=== PATIENT | female | born 1970 | race Caucasian/White ===

== ENCOUNTER 2022-08-26 08:23 | Outpatient (REF) | payer OTHER, SELFPAY ==
--- NOTE | ~2022-08-26 | CT_ITS ---
EXAMINATION: CT SOFT TISSUE NECK WITHOUT IV CONTRAST CLINICAL INFORMATION: Nontoxic multinodular goiter. COMPARISON: Thyroid ultrasound 10/30/2015. TECHNIQUE: Helical imaging was performed in the axial plane with generation of coronal and sagittal reformatted images. This CT examination was performed using dose optimization techniques as appropriate, variously including the following: *Automated exposure control. *Adjustment of mA and/or kV according to patient size (this includes techniques or standardized protocols for targeted exams where dose is matched to indication/reason for exam; i.e. extremities or head). *Use of iterative reconstruction technique. DLP: 370 mGy-cm FINDINGS: A dominant partially calcified nodule within the left thyroid lobe is difficult to measure on this noncontrast CT. Bilateral thyroid nodules are better appreciated on the most recent thyroid ultrasound dated 10/30/2015 and these nodules would be better followed with ultrasound. There is no mass effect on the trachea or esophagus. No substernal extension of the thyroid. The unenhanced submandibular glands, parotid glands, and orbital soft tissues are unremarkable. There is atherosclerotic calcification involving the carotid bifurcations bilaterally. The laryngeal structures are unremarkable. No definite superficial mucosal space lesions identified on this noncontrast CT though assessment is limited. Imaged upper lungs are clear. Imaged upper mediastinum is unremarkable. Mild cervical spondylosis. No acute or suspicious osseous findings. Occipital arachnoid granulations. CT/CT soft tissue neck wo IV con IMPRESSION: A dominant partially calcified nodule within the left thyroid lobe is difficult to measure on this noncontrast CT. Bilateral thyroid nodules are better appreciated on the most recent thyroid ultrasound dated 10/30/2015 and these nodules would be better followed with ultrasound. There is no mass effect on the trachea or esophagus. No substernal extension of the thyroid.
== END 2022-08-26 08:24 | disposition home or self-care (01) ==
LOC: HO.CT 08:23
PROVIDERS: PCP Pediatrics; Visit Provider Internal Medicine
DX: E04.2 Nontoxic multinodular goiter (principal)
CPT/HCPCS: 70490

== ENCOUNTER 2022-09-16 07:33 | Outpatient (REF) | payer OTHER, SELFPAY ==
--- NOTE | 2022-09-16 08:34 | PM.OP ---
Brief Operative Note Date of Service: 09/16/22 Pre-op diagnosis: Multinodular Thyroid Procedure: This is doctor Ruth Ramirez. This is an ultrasound-guided fine-needle aspiration report. Date of Examination: 09/16/2022 Indication: Multinodular Thyroid Porcedure: Procedure was explained to the patient. Alternatives, the risk and benefits were discussed. Written consent was obtained. A time-out was also obtained. After sterile preparation, fine-needle aspiration of a left mid pole 2.0 cm thyroid nodule was performed using direct ultrasound guidance to confirm accurate needle placement. Two aspirations were made using 27 gauge needles. An additional two aspirations were made using 25 guage needles. Samples were submitted for cytology. 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 The patient tolerated the procedure well. Aftercare instructions were provided. Impression: Uncomplicated fine needle aspiration biopsy of a left mid pole 2.0 cm thyroid nodule thyroid nodule under ultrasound guidance. Of note, her right mid pole lateral nodule was remeasured and found to be subcentimeter today. The medial RMP nodule was found to be a pseudonodule and not a true nodule. Surgeon: Ruth Ramirez, DO Was an Farmer Vegetable used for this Procedure?: No Estimated blood loss (mL): 0
[2022-09-16] MEDS: Lidocaine HCl 1 % 20 ML VIAL 5 ML SUBCUT (09:40)
== END 2022-09-16 07:34 | disposition home or self-care (01) ==
LOC: HO.US 07:33
PROVIDERS: PCP Pediatrics; Visit Provider Internal Medicine
DX: E04.2 Nontoxic multinodular goiter (principal)
CPT/HCPCS: 10005; 88172; 88173; 88177

== ENCOUNTER 2022-10-06 09:30 | Outpatient (REF) | payer OTHER, SELFPAY ==
[2022-10-06 11:33] LABS: Albumin Level 4.5 g/dL (3.5-5.0); Free T4 (Free Thyroxine) 1.02 ng/dL (0.71-1.85); Phosphorus 3.6 mg/dL (2.7-4.5); Thyroid Stimulating Hormone 1.32 uIU/mL (0.32-4.0); Vitamin D 25-OH Total 25.7 ng/mL (>30)
[2022-10-07 17:47] LABS: Calcium (PTHI) 9.5 mg/dL (8.6-10.4); PTHI 68 pg/mL (16-77)
== END 2022-10-06 09:31 | disposition home or self-care (01) ==
LOC: HO.LAB 09:30
PROVIDERS: PCP Pediatrics; Visit Provider Internal Medicine
DX: E04.2 Nontoxic multinodular goiter (principal); E55.9 Vitamin D deficiency, unspecified
CPT/HCPCS: 36415; 82040; 82306; 83970; 84100; 84439; 84443

== ENCOUNTER 2023-01-08 10:07 | Outpatient (REF) | payer OTHER, SELFPAY ==
[2023-01-08 11:39] LABS: Alanine Aminotransferase 42 U/L (0-31); Albumin Level 4.3 g/dL (3.5-5.0); Alkaline Phosphatase 62 U/L (39-117); Anion Gap 14 (12-20); Aspartate Amino Transferase 35 U/L (5-31); Bilirubin Total 0.8 mg/dL (0.0-1.0); Blood Urea Nitrogen 17 mg/dL (9-16); Calcium 9.4 mg/dL (8.4-10.2); Carbon Dioxide 26 mmol/L (22-29); Chloride 108 mmol/L (96-108); Estimated Glomerular Filt Rate > 60; Glucose Random 146 mg/dL (60-115); Phosphorus 3.4 mg/dL (2.7-4.5); Potassium 4.5 mmol/L (3.3-5.1); Sodium 143 mmol/L (135-145); Total Protein 7.3 g/dL (6.5-8.0)
[2023-01-08 11:56] LABS: Free T4 (Free Thyroxine) 1.39 ng/dL (0.71-1.85); Thyroid Stimulating Hormone 0.06 uIU/mL (0.32-4.0); Vitamin D 25-OH Total 34.2 ng/mL (>30)
[2023-01-11 01:03] LABS: Calcium (PTHI) 9.6 mg/dL (8.6-10.4); PTHI 27 pg/mL (16-77)
== END 2023-01-08 10:08 | disposition home or self-care (01) ==
LOC: HO.LAB 10:07
PROVIDERS: Visit Provider Internal Medicine
DX: E55.9 Vitamin D deficiency, unspecified (principal); E04.2 Nontoxic multinodular goiter
CPT/HCPCS: 36415; 80053; 82306; 83970; 84100; 84439; 84443

== ENCOUNTER → 2023-01-12 09:51 | Outpatient (BNVA) | payer OTHER, SELFPAY | PROVIDERS: PCP Pediatrics; Visit Provider Internal Medicine | DX: Z13.89 Encounter for screening for other disorder (principal) ==

== ENCOUNTER 2023-02-19 09:53 | Outpatient (REF) | payer OTHER, SELFPAY ==
[2023-02-19 11:31] LABS: Thyroid Stimulating Hormone 0.19 uIU/mL (0.32-4.0)
== END 2023-02-19 09:54 | disposition home or self-care (01) ==
LOC: HO.LAB 09:53
PROVIDERS: PCP Pediatrics; Visit Provider Internal Medicine
DX: E03.9 Hypothyroidism, unspecified (principal)
CPT/HCPCS: 36415; 84439; 84443

== ENCOUNTER 2023-03-17 07:12 | Outpatient (REF) | payer OTHER, SELFPAY ==
[2023-03-17 09:15] LABS: Free T4 (Free Thyroxine) 1.26 ng/dL (0.71-1.85); Thyroid Stimulating Hormone 1.03 uIU/mL (0.32-4.0)
== END 2023-03-17 07:13 | disposition home or self-care (01) ==
LOC: HO.LAB 07:12
PROVIDERS: Visit Provider Internal Medicine
DX: E03.9 Hypothyroidism, unspecified (principal)
CPT/HCPCS: 36415; 84439; 84443

== ENCOUNTER 2023-05-02 09:25 | Outpatient (AMB) | payer OTHER, SELFPAY ==
--- NOTE | 2023-05-02 09:27 | A.OFFVIS_ITS ---
Intake Intake Visit Reasons: Thyroid Cancer Allergies bee venom protein (honey bee) Allergy (Mild, Verified 05/02/23 09:56) Unknown cephalexin [From Keflex] Allergy (Mild, Verified 05/02/23 09:56) Rash clindamycin Allergy (Mild, Verified 05/02/23 09:56) Rash prochlorperazine [From Compazine] Adverse Reaction (Mild, Verified 05/02/23 09:56) Dystonia Medication List - Last Reconciled 05/02/23 by Ruth Ramirez DO cetirizine (Zyrtec) 10 mg PO DAILY PRN epinephrine IM hydrochlorothiazide 25 mg PO DAILY levothyroxine 88 mcg PO DAILY 30 days metoprolol succinate ER 50 mg PO DAILY omeprazole 20 mg PO DAILY risankizumab-rzaa (Skyrizi) mg subcut valacyclovir 500 mg PO DAILY PRN HPI HPI Comments History of Present Illness Details 53 YO F with PMHx NTMNG who is seen in F/U for postoperative hypothyroidism. Was initially diagnosed with multinodular thyroid many years ago and did undergo an FNA of 1 nodule in approximately 2015. She reports this was benign. She had a repeat thyroid US 07/01/2022 which revealed 3 nodules meeting indication for FNA biopsy. She underwent FNA biopsy 09/16/2022 of a LMP 2.0 cm thyroid nodule. 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 This gives a 75% of malignancy. Her other nodules were found to not meet indication for FNA biopsy at the time. She was referred to Dr. Dhaliwal and underwent a total thyroidectomy. 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 Postoperative she was started on levothyroxine 112 mcg PO daily. TSH was supressed on this dose, so her dose was decreased to 88 mcg PO daily. She reports feeling well today. Denies any history of head or neck irradiation. Denies any family history of thyroid cancer. Labs: Laboratory Tests 03/17/23 07:22 TSH 1.03 Free T4 1.26 [facility] Medical History Hypothyroidism Multinodular thyroid Psoriasis Vitamin D deficiency Surgical History History of endometrial ablation Hx of biopsy Hx of section Hx of lithotripsy Hx of total thyroidectomy Hx of unilateral salpingectomy Hx of wisdom tooth extraction Family History Father Diabetes HTN (hypertension) Mother Ovarian cancer Social History Alcohol intake: current Alcohol intake frequency: a few times a month Patient Tobacco Use Status: Never used Tobacco Assessment & Plan Assessment & Plan (1) Hypothyroidism: Code(s): E03.9 - Hypothyroidism, unspecified Plan: Patient with postoperative hypothyroidism. Surgical path was benign. TSH remains at goal on levothyroxine 88 mcg PO daily. She will continue on this dose. She will F/U with her PCP for further management. All of her questions were answered. She is in agreement with this plan of care. I spent 20 minutes in reviewing the record, seeing the patient and documenting in the medical record including 5 minutes on the phone with the Patient. Telehealth Telehealth Location of provider rendering services: practice address Location of patient: address on file Patient Identification confirmed using: Name, : Yes Telehealth method: voice only Patient verbally consented to treatment: Yes Patient verbally consented to billing insurance company: Yes Patient informed of any privacy concerns related to visit: Yes Coding Level of Care Code Tele Est Pt Level 3 (91566) Diagnoses Hypothyroidism E03.9
== END 2023-05-03 16:35 | disposition home or self-care (01) ==
LOC: HO.ENCR 09:25
PROVIDERS: PCP Pediatrics; Visit Provider Internal Medicine
DX: E03.9 Hypothyroidism, unspecified (principal)
CPT/HCPCS: 99213

== ENCOUNTER → 2023-05-02 09:25 | Outpatient (BNVA) | payer OTHER, SELFPAY | PROVIDERS: PCP Pediatrics; Visit Provider Internal Medicine ==

== ENCOUNTER 2024-07-04 16:35 | Outpatient (REF) | payer OTHER, SELFPAY ==
[2024-07-07 16:24] LABS: TS Negative Control Passed; TS Panel A 1; TS Panel B 1; TS Positive Control Passed; TSpotTB Negative (Negative)
== END 2024-07-04 16:36 | disposition home or self-care (01) ==
LOC: HO.LAB 16:35
PROVIDERS: PCP Pediatrics; Visit Provider Dermatology
DX: L40.0 Psoriasis vulgaris (principal); Z79.899 Other long term (current) drug therapy
CPT/HCPCS: 36415; 86481

== ENCOUNTER 2025-03-12 07:32 | Outpatient (REF) | payer OTHER, SELFPAY ==
--- OUTSIDE RECORDS SUMMARY | 2025-03-12 07:36 | XMS_ITS ---
Author Organization [facility] Address [address] [place] [address] Care Team Providers Care Coordinator Of Library Services Name Role Phone Cesar Garrett MD Primary Care Provider Unavail able Black, Omaira Unavailable [phone] Allergies Allergen (clinical drug ingredient) Drug/Non Drug Allergy documented on EMR Reaction Allergy Type Onset Date Status Ceftin rash Drug Allergy Active Keflex rash Drug Allergy Active Levaquin stomach upset Drug Allergy Act jocelyn Compazine Unknown Drug Allergy Active Bee Sting Unknown Allergy Active ciprofloxacin Ciprofloxacin stomach upset Drug Allergy Active REASON FOR VISIT Foot pain, Painful nail(s) aggrevated by shoes causing difficulty standing/walking Medications Medication SIG (Take, Route, Frequency, Duration) Notes Start Date End Date Status Cetirizine HCl 10 MG 1 tablet Orally Onc e a day Active Skyrizi 150 MG/ML as directed Subcutaneous as directed Active Levothyroxine Sodium 88 MCG 1 tablet in the morning on an empty stomach Orally Once a day Active Betamethasone Active Nabumetone 500 MG 1 tablet Orally as needed Active Physical Therapy . . . 2-3x/week for 3- 4 weeks 07/19/2023 Active Feldene 20 MG 1 capsule with food Orally Once a day for 30 day(s) 07/19/2023 Active Metoprolol Succinate ER 50 MG 1 tablet O rally Once a day Active hydroCHLOROthiazide 25 MG 1 tablet in th e morning Orally Once a day Active Clobetasol & Clobetasol Emul Active valACYclovir HCl Act jocelyn Omeprazole 20 MG 1 capsule 30 minutes before morning meal Orally Once a day Active Social History Tobacco Use: Social History Observation Description Date Details (start date - stop date) Never Smoker NA - NA Tobacco Use/Smoking Question Answer Notes Are you a: nonsmoker Additional Findings: Tobacco Non-User Aggressive non-smoker Alcohol Screen Question Answer Notes Did you have a drink contain ing alcohol in the past year? Yes How often did you have a dri nk containing alcohol in the past year? Monthly or less (1 point) How many drinks did you have on a typical day when you were drinking in the past year? 1 or 2 drinks (0 point) How often did you have 6 or more drinks on one occasion in the past year? Never (0 point) Points 1 Interpretation Negative Tobacco use other than smoking: Question Answer Notes Are you an other tobacco user? No Vital Signs Height 4 ft 10 in in 02/21/2024 Weight 148 lbs 02/21/2024 BMI 30.93 kg/m2 02/21/2024 Encounters Encounter Location Date Provider Diagnosis [facility] [address] [address] 02/21/2024 Omaira Black Posterior tibial tendinitis, right leg M76.821 ; Other nail disorders L60.8 ; Hypertrophy of bone, right ankle and foot M89.371 ; Flat foot [pes planus] (acquired), right foot M21.41 and Pain in right toe(s) M79.674 Assessments Encounter Date Diagnosis (ICD Code) Assessment Notes Treatment Notes Treatment Clinical Notes Section Notes 02/21/2024 Posterior tibial tendinitis, right leg (ICD-10 - M76.821) Resolved 02/21/2024 Other nail disorders (ICD-10 - L60.8) 02/21/2024 Hypertrophy of bone, right ankle and foot (ICD-10 - M89.371) 02/21/2024 Flat foot [pes planus] (acquired), right foot (ICD-10 - M21.41) 02/21/2024 Pain in right toe(s) (ICD-10 - M79.674) Plan Of Treatment Next Appt Details Follow Up: prn, Reason: Progress Notes * Renay BERGMAN LDOB:[birth year] (54 yo F)Acc No.[id number]:02/21/2024 Progress Note Patient:?Renay Bergman Provider:?Omaira Rosales DPM :1970???Age:54 Y???Sex:Female D ate:02/21/2024 Address:[address] [place], [place] [id number] Pcp:Cesar Garrett MD Subjective: * Chief Complaints: * ???Foot painPainful nail(s) aggrevated by shoes causing difficulty standing/walking * HPI: ???Foot Pain:?Nature:?aching, pulling, throbbing, weakness.?Location:?RIGHT.?Duration:?since DOI [ 09/2022 ].?Onset:?after a long walk.?Course:?improved , at 100%.?Aggrevated:?any pressure, standing, walking.?Treatments:?rest, ice , stretching , innersoles, innersoles, advil- pt did not fill feldene due to she decide she did not want to take it , physical therapy.?Painful Nails:?Pt States Last PCP Visit:?Date:?10/18/2023 * ROS:?General/Constitutional:?Nausea?denies.?Vomiting?denies.?Hunger Thirst?denies.?Loss appetite?denies.?Chills?denies.?Fatigue?admits.?Fever?denies.?Night Sweats?denies.?Unexplained weight loss?denies.?Unexplained weight gain?denies.?HEENTM:?Dentures?denies.?Dizziness?denies.?Glasses/contacts?admits.?Retinopathy?de nies.?Blurred/double vision?denies.?TMJ?admits.?Discharge/drainage?denies.?Implants?denies.?Sore throat?denies.?Dental implants?denies.?Hard of hearing ?denies.?Difficulty chewing/swallowing/speaking?denies.?Nose bleeds?denies.?Sore mouth?denies.?Respiratory:?On Oxygen?denies.?Pneumonia/pleurisy?denies.?Bronchitis?denies.?Emphysema?denies.?C oughing?admits.?Cough blood?denies.?Shortness of breath?denies.?Wheezing?denies.?Cardiovascular:?Pacemaker?denies.?MVP?denies.?WPW?denies.?CHF?denies.?Heart attack?denies.?Septal defect?denies.?Rapid beat?denies.?Chest pain ?denies.?Atrial Fib.?denies.?Murmur/Palpitations?denies.?Gastrointestinal:?Hemorrhoids?admits.?Stomach/Abdominal pain?denies.?Dark blood stool?denies.?Irritable bowel ?admits.?Constipation?denies.?Diarrhea?denies.?Hematology:?Swelling?denies.?Clots?denies.?Varicose Veins?denies.?Bruising?denies.?Bleeding problem?denies.?Genitourinary:?Blood urine?denies.?Frequent/Painfu/urination/bladder control?denies.?Kidney stones?denies.?Infection (UTI)?denies.?Nephropathy?denies.?sex trans dis (STD)?admits.?Prostate?denies.?Musculoskeletal:?Hammertoes?denies.?Bunions?admits.?Back Pain?denies.?Muscle Cramps/ Resting?denies.?Muscle cramps / walking?denies.?Generalized aches and pains?denies.?Weakness?denies.?Integ.:?Tovar?denies.?Scars?admits.?Corns/calluses?denies.?Ingrown nails?denies.?Painful nails?denies.?Open Sores?denies.?Rashes?denies.?Neurologic:?Difficulty sleeping?denies.?Brain disorder?denies.?Numbness?denies.?Balance trouble?denies.?Confusion?denies.?Fainting/blackouts?denies.?Tingling?denies.?Tr emors?denies.? * Medical History:? * Surgical History:?thyroidect kiya 10/2022lap salpingectomy 07/2011C-Section wisdom teeth extraction 1988ureteroscopy 06/2001 * Hospitalization/Major Diagno stic Procedure:?No Hospitalization History. * Family History:?Mother: dece ased.?Father: alive, arthritis, cancer, diagnosed with Diabetic - NIDDM.? * Social History:?Tobacco Use:?Tobacco Use/Smoking?Are you a:?nonsmoker ?Additional Findings: Tobacco Non-User?Aggressive non-smoker ?Tobacco use other than smoking?Are you an other tobacco user??No ???Drugs/Alcohol:?Drugs?Have you used drugs other than those for medical reasons in the past 12 months??No ?Alcohol Screen?Did you have a drink containing alcohol in the past year??Yes ?How often did you have a drink containing alcohol in the past year??Monthly or less (1 point) ?How many drinks did you have on a typical day when you were drinking in the past year??1 or 2 drinks (0 point) ?How often did you have 6 or more drinks on one occasion in the past year??Never (0 point) ?Points?1 ?Interpretation?Negative ???Miscellaneous:?Caffeine: yes, frequency:, 1-2 cups per day. ?Children: yes. ?no Exercise. ?Marital status: . ?Occupation: Sql Consultant medical radiation therapist. * Medications:?TakingClobetaso l & Clobetasol Emul Nabumetone 500 MG Tablet 1 tablet Orally as neededBetamethasone Levothyroxine Sodium 88 MCG Tablet 1 tablet in the morning on an empty stomach Orally Once a daySkyrizi 150 MG/ML Solution Prefilled Syringe as directed Subcutaneous as directedCetirizine HCl 10 MG Tablet 1 tablet Orally Once a dayOmeprazole 20 MG Tablet Delayed Release Disintegrating 1 capsule 30 minutes before morning meal Orally Once a dayvalACYclovir HCl hydroCHLOROthiazide 25 MG Tablet 1 tablet in the morning Orally Once a dayMetoprolol Succinate ER 50 MG Tablet Extended Release 24 Hour 1 tablet Orally Once a dayFeldene 20 MG Capsule 1 capsule with food Orally Once a dayPhysical Therapy . . . . 2-3x/weekMedication List reviewed and reconciled with the patientTaking Clobetasol & Clobetasol Emul Taking Nabumetone 500 MG Tablet 1 tablet Orally as neededTaking Betamethasone Taking Levothyroxine Sodium 88 MCG Tablet 1 tablet in the morning on an empty stomach Orally Once a dayTaking Skyrizi 150 MG/ML Solution Prefilled Syringe as directed Subcutaneous as directedTaking Cetirizine HCl 10 MG Tablet 1 tablet Orally Once a dayTaking Omeprazole 20 MG Tablet Delayed Release Disintegrating 1 capsule 30 minutes before morning meal Orally Once a dayTaking valACYclovir HCl Taking hydroCHLOROthiazide 25 MG Tablet 1 tablet in the morning Orally Once a dayTaking Metoprolol Succinate ER 50 MG Tablet Extended Release 24 Hour 1 tablet Orally Once a dayTaking Feldene 20 MG Capsule 1 capsule with food Orally Once a dayTaking Physical Therapy . . . . 2-3x/weekMedication List reviewed and reconciled with the patient * Allergies:?Keflex: rashCefti n: rashCiprofloxacin: stomach upsetLevaquin: stomach upsetCompazineBee Stingyes[Allergies Verified] Objective: * Vitals:?Ht: 4 ft 10 in, Wt: 148, BMI:30.93, Shoe size: 6.5. * Examination: ???Orthopedic: ?FOOT MORPHOLOGY:?Pes Planus structure , Semi-flexible , B/L POP navicular bone right foot.?TENDONITIS:?less @ 100% Pain on palpation, inflammation, and fusiform swelling to, Posterior Tibial Tendon, RIGHT, Pt is able to toe raise with heels inverted Pain on insertion of PPT tendon?.?Neurological: ?SENSORY:?Neurological exam reveals intact sensorium, pain sensation normal, vibration sensation intact, pinprick sensation is normal in the lower extremities, Pt denies, anesthesia, burning, paresthesia, tingling, B/L.?Nails: ?NAILS are:?Elongated, overgrown, dystrophic,brittle 1-5 right.? Assessment: * Assessment: 1.?Other nail disorders - L6 0.8 (Primary)?2.?Posterior tibial tendinitis, right leg - M76.821, Resolved?3.?Hypertrophy of bone, right ankle and foot - M89.371?4.?Flat foot [pes planus] (acquired), right foot - M21.41?5.?Pain in right toe(s) - M79.674? Plan: * Treatment: * Procedure Codes:? * Preventive Medicine:? ??Counseling:?Discussion:?-13: Office or other outpatient visit for the evaluation and management of an established patient, which required a medically appropriate history and/or examination and LOW level of DECISION MAKING for: 1 STABLE ACUTE UNCOMPLICATED PROBLEM, 2 OR MORE MINOR PROBLEMS, OR 1 STABLE CHRONIC PROBLEM, THAT POSE(S) A LOW RISK FOR MORBIDITY/MORTALITY. The visit on the day of the encounter encompassed interpreting the data and educating the patient as to the nature of their condition, treatment options available according to their individual PMH, meds, allergies, and overall health/living conditions, as well as any potential risks or complications that may occur from a failure to adhere to, and participate in, the recommended course of therapy. The discussion included a complete verbal, and/or written explanation of the examination results, any x-rays taken, the proposed diagnosis, and outline of the treatment plan. A schedule for future care needs was also explained. The patient verbalized an understanding of the instructions at this time and agreed to be an active participant in their treatment. If the patient should think of any questions or concerns after the visit, I have encouraged the patient to call the office,, Given recent successful results to treatment,, Patients podiatric issue has improved, they should call the office with any future issues or concerns.?Podiatric Counseling:?I explained the etiology of the patients podiatric pathology and the usual treatment plan. The patient was made aware of the adverse risks and sequelae associated with their medical condition(s) and the treatment necessary to avoid those complications. recomm biotin for dry brillte nails- discussed thyroid may be playing a role in the nails- no evidence of fungus.? * Follow Up:?prn * Images: * Sign off status: Completed true * Provider:?Omaira Rosales DPM Date:?2023 Generated for Printshauna nino/Fademariog/eTransmitting on:?03/12/2025 07:35 AM EDT History and Physical Notes * HPI (History of Present Illness) Category Sub-Category Detail Notes Category Not es Painful Nails Pt States Last PCP Visit: Date:: 10/18/2023 Foot Pain Nature: aching, pulling, throbbing, weakness Location: RIGHT Duration: since DOI [ 09/2022 ] Onset: after a long walk Course: improved , at 100% Aggravated: any pressure, standi ng, walking Treatments: rest, ice , stretchi ng , innersoles, innersoles, advil- pt did not fill feldene due to she decide she did not want to take it , physical therapy Examination Category Sub-Category Detail Notes Category Not es Neurological SENSORY: Neurological exa m reveals intact sensorium, pain sensation normal, vibration sensation intact, pinprick sensation is normal in the lower extremities, Pt denies, anesthesia, burning, paresthesia, tingling, B/L Orthopedic FOOT MORPHOLOGY: Pes Planus stru cture , Semi-flexible , B/L POP navicular bone right foot TENDONITIS: less @ 100% Pain on palpation, inflammation, and fusiform swelling to, Posterior Tibial Tendon, RIGHT, Pt is able to toe raise with heels inverted Pain on insertion of PPT tendon Nails NAILS are: Elongated, overgrown, dystro phic,brittle 1-5 right
[2025-03-12 08:07] LABS: MANUAL DIFF FLAG NO
[2025-03-12 09:11] LABS: Basophils Absolute Auto 0.1 X10*3/uL (0.0-0.2); Basophils Percent Auto 0.8 % (0-2); Eosinophils Absolute Auto 0.1 X10*3/uL (0.0-0.4); Eosinophils Percent Auto 1.9 % (0-4); Hematocrit 42.9 % (37.0-47.0); Imm Gran Abs Auto 0.02 X10*3/uL (0.00-0.03); Imm Gran Pct Auto 0.3 % (0.0-0.4); Lymphocytes Absolute Auto 1.4 X10*3/uL (1.2-4.9); Lymphocytes Percent Auto 18.3 % (20-40); Mean Corpuscular Hemoglobin 29.9 pg (27.0-33.0); Mean Corpuscular Volume 85.5 fL (80.0-98.0); Mean Platelet Volume 9.6 fL (9.4-12.3); Monocytes Absolute Auto 0.7 X10*3/uL (0.1-1.2); Monocytes Percent Auto 9.5 % (2-11); Neutrophils Absolute Auto 5.1 x10*3/uL (2.0-8.3); Neutrophils Percent Auto 69.2 % (45-73); Platelet Count 221 X10*3/uL (160-400); Red Blood Count 5.02 X10*6/uL (4.20-5.50); Red Cell Distribution Width 12.9 % (11.0-16.0); White Blood Count 7.4 X10*3/uL (4.8-10.8)
[2025-03-12 09:22] LABS: Appearance Urine Clear; Color Urine Yellow; Glucose Urine UA Negative (Negative); Leukocyte Esterase Urine Moderate (2+) (Negative); Nitrite Urine Negative (Negative); Specific Gravity - Urine 1.025 (1.005-1.025); UMIC TRIGGER UA YES; Urine Blood Negative (Negative); Urine Ketones Trace mg/dL (Negative); Urine Protein Negative (Neg-Trace)
[2025-03-12 09:23] LABS: Estimated Average Glucose 117 mg/dL; Hemoglobin A1c % 5.7 % (<6.0)
[2025-03-12 09:47] LABS: Alanine Aminotransferase 25 U/L (0-31); Albumin Level 4.5 g/dL (3.5-5.0); Alkaline Phosphatase 56 U/L (39-117); Anion Gap 13 (12-20); Aspartate Amino Transferase 28 U/L (5-31); Bilirubin Total 0.7 mg/dL (0.0-1.0); Blood Urea Nitrogen 13 mg/dL (9-16); Calcium 9.6 mg/dL (8.4-10.2); Carbon Dioxide 27 mmol/L (22-29); Chloride 105 mmol/L (96-108); Estimated Glomerular Filt Rate > 60; Glucose Random 102 mg/dL (60-115); Potassium 3.7 mmol/L (3.3-5.1); Sodium 141 mmol/L (135-145); Total Protein 7.6 g/dL (6.5-8.0)
[2025-03-12 09:59] LABS: Bacteria Urine 1+ (None Seen); Hyaline Casts Urine 0-2 /LPF (0-2); RBC Urine 0-2 /HPF (0-2); WBC Urine 0-5 /HPF (0-5)
[2025-03-12 10:09] LABS: TSH reflex Free T4 1.26 uIU/mL (0.32-4.0); Vitamin D 25-OH Total 27.1 ng/mL (>30)
== END 2025-03-12 07:33 | disposition home or self-care (01) ==
LOC: HO.LAB 07:32
PROVIDERS: PCP Pediatrics; Visit Provider Pediatrics
DX: E89.0 Postprocedural hypothyroidism (principal); Z13.1 Encounter for screening for diabetes mellitus
CPT/HCPCS: 36415; 80053; 81001; 82306; 83036; 84443; 85025

== ENCOUNTER 2025-08-26 16:37 | Outpatient (REF) | payer OTHER, SELFPAY ==
--- OUTSIDE RECORDS SUMMARY | 2025-08-26 18:04 | XMS_ITS | Clinical Summary ---
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 Name Role Phone Unavailable Primary Care Provider Unavailabl e Social History Tobacco Use Types Packs/Day Years Used Date Smoking Tobacco: Never Assessed Comments Unknown Sex and Gender Information Value Date Recorded Sex Assigned at Not on file Legal Sex Female 9:05 PM EST Gender Identity Not on file Sexual Orientation Not on file Plan of Treatment Health Maintenance Due Date Last Done Comments DTaP,Tdap,and Td Vaccines (1 - Tdap) 02/03/1988 Hepatitis B Vaccines (1 of 3 - 19+ 3-dose series) 02/03/1988 Cervical Cancer Screening: P ap Smear 1990 Pneumococcal Vaccine: 50+ Years (1 of 1 - PCV) 2019 Zoster Vaccines (1 of 2) 2019 Breast Cancer Screening 03/19/2021 03/19/20, 03/05/2018 Depression Screening 10/17/2024 COVID-19 Vaccine ( - 2023-2 5 season) 2025 Influenza Vaccine (#1) 2025 RSV Immunization Adult Patients (1 - 1-dose 75+ series) 02/03/2044 HIB Vaccines Aged Out No longer eligi ble based on patient's age to complete this topic HPV Vaccines Aged Out No longer eligi ble based on patient's age to complete this topic Hepatitis A Vaccines Aged Out No long er eligible based on patient's age to complete this topic IPV Vaccines Aged Out No longer eligi ble based on patient's age to complete this topic MMR Vaccines Aged Out No longer eligi ble based on patient's age to complete this topic Meningococcal ACWY Vaccine Aged Out N o longer eligible based on patient's age to complete this topic Meningococcal B Vaccine Aged Out No l onger eligible based on patient's age to complete this topic RSV Immunization Patients Under 20 months Aged Out No longer eligible b ased on patient's age to complete this topic Varicella Vaccines Aged Out No longer eligible based on patient's age to complete this topic Procedures Procedure Name Priority Date/Time Associated Diagnosis Comments [facility] SCREENING DIGITAL Routine 03/19/2019 8:10 AM EDT Encounter for screening mammogram for malignant neoplasm of breast from Last 3 Months or Most Recently Relevant to Health Maintenance Results * [facility] SCREENING DIGITAL (03/19/2019 8:10 AM EDT) Anatomical Region Laterality Modality Mammography 03/14/2019 1:26 PM EDT Narrative 03/19/2019 8:[address] [facility] Diagnostic Imaging Department [address] [place] [address] Patient: RENAY BERGMAN Filipe /Age/Sex: 1970 - 49 - F Unit#: [id number] Location/Status: [facility] Mnemonic/Ordering Site: [facility] Ordering Physician: CESAR KELLER MD [facility] Screening Digital - 03/17/19831 EXAM: [facility] Screening Digital EXAM DATE AND TIME: 03/17/2019 8:32 AM HISTORY: Screening. Paternal grandmother had breast carcinoma. COMPARISON: 03/04/18, 02/19/17, 01/31/16, 01/25/15 TECHNIQUE: CC and MLO views of both breasts were obtained using full field digital mammography. Bilateral digital breast tomosynthesis was performed in the MLO projection. Computer aided detection with the iCAD SecondLook 7.2-H was employed. TISSUE DENSITY: b. There are scattered areas of fibroglandular density. FINDINGS: No suspicious masses, grouped microcalcifications, or areas of architectural distortion are seen. A few smooth round benign microcalcifications are again seen bilaterally. The skin and vascularity are unremarkable. IMPRESSION: Stable mammographic appearance of the breasts. No evidence of malignancy is seen. A negative mammogram in the presence of a clinically suspicious palpable abnormality does not preclude the possibility of malignancy or alter the indications for biopsy. BI-RADS: Category 2: Benign RECOMMENDATION(S): 1: Routine screening mammogram BILATERAL in 1 year. 28294, 17128 3342F, 7025F Dictating Physician: NAA JOLLEY MD Electronically Signed by: NAA JOLLEY MD Dic Date/Time: 03/19/19809 Sign date/Time: 03/19/19809 Procedure Note Naa Jolley - 10/05/2022 [facility] Diagnostic Imaging Department [address] [place] [address] Patient: RENAY BERGMAN Filipe /Age/Sex: 1970 - 49 - F Unit#: [id number] Location/Status: [facility]/REG CLI Mnemonic/Ordering Site: [facility] Ordering Physician: CESAR KELLER MD [facility] Screening Digital - 03/17/19831 EXAM: [facility] Screening Digital EXAM DATE AND TIME: 03/17/2019 8:32 AM HISTORY: Screening. Paternal grandmother had breast carcinoma. COMPARISON: 03/04/18, 02/19/17, 01/31/16, 01/25/15 TECHNIQUE: CC and MLO views of both breasts were obtained using fullfield digital mammography. Bilateral digital breast tomosynthesis was performedin the MLO projection. Computer aided detection with the [email or web address]-GOODas employed. TISSUE DENSITY: b. There are scattered areas of fibroglandular density. FINDINGS: No suspicious masses, grouped microcalcifications, or areas ofarchitectural distortion are seen. A few smooth round benign microcalcifications areagain seen bilaterally. The skin and vascularity are unremarkable. IMPRESSION: Stable mammographic appearance of the breasts. No evidence of malignancyis seen. A negative mammogram in the presence of a clinically suspicious palpable abnormality does not preclude the possibility of malignancy or alter the indications for biopsy. BI-RADS: Category 2: Benign RECOMMENDATION(S): 1: Routine screening mammogram BILATERAL in 1 year. 52041, 21809 3342F, 7025F Dictating Physician: NAA JOLLEY MD Electronically Signed by: NAA JOLLEY MD Dic Date/Time: 03/19/19 0810 Sign date/Time: 03/19/19809 Cesar Keller MD IMG BI PROCEDURES Final Result from Last 3 Months or Most Recently Relevant to Health Maintenance
--- OUTSIDE RECORDS SUMMARY | 2025-08-26 18:04 | XMS_ITS | Data Portability ---
Author Organization [facility], Main Office Address [address] [facility] [address] [place] [address] Care Team Providers Care Footwear Sales Representative Name Role Phone CESAR KELLER Primary Care Provider [phone] NAOMIE GANDHI Landscape Foreman JERICA LOPEZ Fashion Merchandiser SISI TALAVERA Hotel Security Officer TRUE SONG Recharger GRISELDA ANG Survey Interviewer SHAHLA RODRIGEZ County Surveyor [phone] MAYKEL KESSLER General Surgeon Assessment Encounter Date Assessment Date Assessment LastModified by Organization Details LastModified Time 11/04/2023 11/04/2023 Discussed with patient the signs/symptom s warranted for a return to office visit and/or an ER visit. Patient understood and agreed with the plan. Not available 11/04/2023 13:19:55 Plan of Treatment Reminders Order Date Submit Date Provider Last Modified By Organization Details Last Modified Time Details Appointments PE EST 2024 10:15A M Cesar Keller MD Not available Not available Not available Lab HbA1c (hemoglo bin A1c), blood 2023 024 [facility], [address] [place] [address] [place], [id number], 03/13/2025 15:20:24 CMP, serum or plasma 2023 [facility], [address] [place] [address] [place], [address], 03/13/2025 15:20:24 TSH, serum, reflex free T4 2023 [facility], [address] [place] [address] [place], [address], 03/13/2025 15:20:24 urinalys is, complete 2023 [facility], [address] [place] [address] [place], [address], 03/13/2025 15:20:24 CBC w/ auto diff 2023 [facility], [address] [place] [address] [place], [address], 03/13/2025 15:20:24 vitamin D, 25-hydro xy, total, serum 2023 [facility], [address] [place] [address] [place], [address], 03/13/2025 15:20:24 Referral gynecolo gist referral - Patient to schedule 2023 merlene Not available 09/11/2024 11:56:06 nutritio nist/ titian referral 2023 merlene Not available 09/11/2024 11:56:18 Procedures None recorded . Surgeries None recorded . Imaging MAMMO, screenin g, bilatera l - Perform Diagnost ic Mammogra m and Breast Ultrasou nd if needed / Perform Ultrasou nd Guided Aspirati on and/or Breast Biopsy if warrante d 2023 [facility], [address], [place], [address], 09/11/2024 11:59:19 Medication Orders polymyxi n B sulfate 10,000 unit-tri methopri m 1 mg/mL eye drops 2024 [facility] #[id number], [address], [place], [id number], 08/07/2025 05:01:23 valacycl ovir 500 mg tablet 2024 025 [facility] #39522, [address], [place], [id number], 03/05/2025 15:54:46 levothyr oxine 88 mcg tablet 2024 025 [facility], [address], [place], [id number], 03/05/2025 15:54:42 metoprol ol succinat e ER 50 mg tablet,e xtended release 24 hr 2024 025 [facility] #40021, [address], [place], [id number], 03/05/2025 15:54:41 hydrochl orothiaz elaine 25 mg tablet 2024 025 [facility] #07767, [address], [place], [id number], 03/05/2025 15:54:43 epinephr ine 0.3 mg/0.3 mL injectio n, auto-inj eugenio 2023 024 DANA Not available 11/28/2023 09:36:31 sertrali ne 25 mg tablet 2023 024 awychowski Not available 12/22/2023 08:42:05 levothyr oxine 88 mcg tablet 2023 024 DANA Not available 11/28/2023 09:36:34 hydrochl orothiaz elaine 25 mg tablet 2023 024 DANA Not available 11/28/2023 09:36:30 metoprol ol succinat e ER 50 mg tablet,e xtended release 24 hr 2023 024 DANA Not available 11/28/2023 09:36:31 polymyxi n B sulfate 10,000 unit-tri methopri m 1 mg/mL eye drops 2023 024 DANA Not available 08/07/2025 05:01:23 Patient TargetsNo targets recorded. Patient Instructions Encounter Date Encounter Id Patient Instructions Last Modified By Organization Details Last Modified Time 11/04/2023 [id number] pinkeye: care instructions Not available 11/04/2023 14:59:51 11/28/2023 [id number] insomnia: care instructions awychowski Not available 11/28/2023 09:36:18 anxiety disorder : care instructions awychowski Not available 11/28/2023 09:36:18 learning about stress awychowski Not available 11/28/2023 09:38:58 Mental Health Information awychowski Not available 11/28/2023 09:38:58 snoring: care instructions awychowski Not available 11/28/2023 09:36:18 09/11/2024 [id number] Cervical Cancer Screening awychowski Not available 09/11/2024 10:26:52 high blood press ure: care instructions awychowski Not available 09/11/2024 10:26:52 learning about h igh blood pressure awychowski Not available 09/11/2024 10:26:51 gastroesophageal reflux disease (GERD): care instructions awychowski Not available 09/11/2024 10:26:51 Starting a Weight-Loss Plan: Care Instructions awychowski Not available 09/11/2024 10:26:52 03/05/2025 [id number] prediabetes: car e instructions awychowski Not available 03/05/2025 15:54:33 high blood press ure: care instructions awychowski Not available 03/05/2025 15:54:33 learning about h igh blood pressure awychowski Not available 03/05/2025 15:54:33 Reason for Referral Landscape Foreman Referral for Sc reening for malignant neoplasm of cervix Patient to schedule Referring Physician: Cesar Keller, Family Medicine, Encounter Date: 09/11/2024 Ticket Maker/dietitian Refer ral for Body mass index 30+ - obesity Referring Physician: Cesar Keller, Family Medicine, Encounter Date: 09/11/2024 Results Created Date Observation Date Name Description Value Unit Range Abnormal Flag Note LastModifiedBy Organization Detail LastModifiedTime 11/30/19 24 11/30/2023 LAB ONLY URINA LYSIS results Unabl e to oscar ct, normae nt to retur n. Not Available [facility] (Centralized Electronic Ordering - All Locations) Patient Can Go To The Location Of Their Choice, 11/30/2023 07:49:25 11/30/19 24 11/30/2023 COMPR EHENS LAURITA METAB OLIC PANL glucose 104 mg/dL (70-99 ) high Not Available [facility] (Centralized Electronic Ordering - All Locations) Patient Can Go To The Location Of Their Choice, 11/30/2023 10:53:43 11/30/1911/30/2023 COMPR EHENS LAURITA METAB OLIC PANL BUN 18 mg/dL (6-20) Not Available [facility] (Centralized Electronic Ordering - All Locations) Patient Can Go To The Location Of Their Choice, 11/30/2023 10:53:43 11/30/19 24 11/30/2023 COMPR EHENS LAURITA METAB OLIC PANL creatinine 0.8 mg/dL (0.5-1 .0) Not Available [facility] (Centralized Electronic Ordering - All Locations) Patient Can Go To The Location Of Their Choice, 11/30/2023 10:53:43 11/30/1911/30/2023 COMPR EHENS LAURITA METAB OLIC PANL sodium 142 mmol/ L (133-1 45) Not Available [facility] (Centralized Electronic Ordering - All Locations) Patient Can Go To The Location Of Their Choice, 11/30/2023 10:53:43 11/30/19 24 11/30/2023 COMPR EHENS LAURITA METAB OLIC PANL potassium 4.3 mmol/ L (3.6-5 .2) Not Available [facility] (Centralized Electronic Ordering - All Locations) Patient Can Go To The Location Of Their Choice, 11/30/2023 10:53:43 11/30/19 24 11/30/2023 COMPR EHENS LAURITA METAB OLIC PANL chloride 101 mmol/ L (98-10 7) Not Available [facility] (Centralized Electronic Ordering - All Locations) Patient Can Go To The Location Of Their Choice, 11/30/2023 10:53:43 11/30/1911/30/2023 COMPR EHENS LAURITA METAB OLIC PANL bicarbonate 27 mmol/ L (22-29 ) Not Available [facility] (Centralized Electronic Ordering - All Locations) Patient Can Go To The Location Of Their Choice, 11/30/2023 10:53:43 11/30/1911/30/2023 COMPR EHENS LAURITA METAB OLIC PANL anion gap 14 (4-17) Not Available [facility] (Centralized Electronic Ordering - All Locations) Patient Can Go To The Location Of Their Choice, 11/30/2023 10:53:43 11/30/1911/30/2023 COMPR EHENS LAURITA METAB OLIC PANL albumin 4.6 gm/dL (3.4-4 .8) Not Available [facility] (Centralized Electronic Ordering - All Locations) Patient Can Go To The Location Of Their Choice, 11/30/2023 10:53:43 11/30/1911/30/2023 COMPR EHENS LAURITA METAB OLIC PANL calcium 9.3 mg/dL (8.6-1 0.5) Not Available [facility] (Centralized Electronic Ordering - All Locations) Patient Can Go To The Location Of Their Choice, 11/30/2023 10:53:43 11/30/1911/30/2023 COMPR EHENS LAURITA METAB OLIC PANL bilirubin,to [place] 0.4 mg/dL (0-1.2 ) Not Available [facility] (Centralized Electronic Ordering - All Locations) Patient Can Go To The Location Of Their Choice, 11/30/2023 10:53:43 11/30/1911/30/2023 COMPR EHENS LAURITA METAB OLIC PANL total protein 7.4 gm/dL (6.2-8 .2) Not Available [facility] (Centralized Electronic Ordering - All Locations) Patient Can Go To The Location Of Their Choice, 11/30/2023 10:53:43 11/30/1910 1211/30/2023 COMPR EHENS LAURITA METAB OLIC PANL Ag ratio 1.6 Not Available [facility] (Centralized Electronic Ordering - All Locations) Patient Can Go To The Location Of Their Choice, 11/30/2023 10:53:43 11/30/19 24 11/30/2023 COMPR EHENS LAURITA METAB OLIC PANL AST 27 U/L (0-32) Not Available [facility] (Centralized Electronic Ordering - All Locations) Patient Can Go To The Location Of Their Choice, 11/30/2023 10:53:43 11/30/19 24 11/30/2023 COMPR EHENS LAURITA METAB OLIC PANL alk phos 70 U/L (35-10 4) Not Available [facility] (Centralized Electronic Ordering - All Locations) Patient Can Go To The Location Of Their Choice, 11/30/2023 10:53:43 11/30/19 24 11/30/2023 COMPR EHENS LAURITA METAB OLIC PANL ALT 25 U/L (0-33) Not Available [facility] (Centralized Electronic Ordering - All Locations) Patient Can Go To The Location Of Their Choice, 11/30/2023 10:53:43 11/30/1911/30/2023 COMPR EHENS LAURITA METAB OLIC PANL estimated GFR creatinine 86 mL/mi n/1.7 3_M2 Creat inine based estim ated glome rular filtr ation (eGFR ) in adult s is calcu lated using the Natio nal Kidne y Found ation recom femi d 2020 CKD-E PI equat ion. Estim ates GFR from serum creat inine , age and sex. Not Available [facility] (Centralized Electronic Ordering - All Locations) Patient Can Go To The Location Of Their Choice, 11/30/2023 10:53:43 11/30/1911/30/2023 LIPID PANEL cholesterol, total 195 mg/dL (<200) Not Available [facility] (Centralized Electronic Ordering - All Locations) Patient Can Go To The Location Of Their Choice, 11/30/2023 10:53:45 11/30/19 24 11/30/2023 LIPID PANEL triglyceride 223 mg/dL (<150) high Not Available [facility] (Central[facility] Ordering - All Locations) Patient Can Go To The Location Of Their Choice, 11/30/2023 10:53:45 11/30/1911/30/2023 LIPID PANEL HDL chol 30 mg/dL (>39) low Not Available [facility] (Centralized Electronic Ordering - All Locations) Patient Can Go To The Location Of Their Choice, 11/30/2023 10:53:45 11/30/1911/30/2023 LIPID PANEL LDL cholesterol, calculated 120 mg/dL (0-130 ) Not Available [facility] (Centralized Electronic Ordering - All Locations) Patient Can Go To The Location Of Their Choice, 11/30/2023 10:53:45 11/30/1911/30/2023 LIPID PANEL non HDL cholesterol (calc) 165 mg/dL (<160) high Not Available [facility] (Centralized Electronic Ordering - All Locations) Patient Can Go To The Location Of Their Choice, 11/30/2023 10:53:45 11/30/1911/30/2023 TSH WITH REFLE X TO FT4 TSH 1.08 uIU/m L (0.4-4 .2) Not Available [facility] (Centralized Electronic Ordering - All Locations) Patient Can Go To The Location Of Their Choice, 11/30/2023 11:07:46 11/30/1911/30/2023 25OH VITAM IN D 25OH vitamin D 23.0 NG/mL (20-50 ) Not Available [facility] (Centralized Electronic Ordering - All Locations) Patient Can Go To The Location Of Their Choice, 11/30/2023 11:07:47 11/30/1911/30/2023 HEMOG LOBIN A1C hemoglobin A1C 5.9 % (4.0-5 .6) high MONIT ORING : In known diabe tic patie nts, hemog lobin A1c targe ts sylvester d be discu ssed with healt h care provi gurdeep. DIAGN OSTIC USE: The Ameri can Diabe danika Assoc iatio n (ADA) and the World Healt h Organ izati on (WHO) recom mend the use of HbA1c to diagn ose diabe danika using a thres hold of 6.5%. Patie nts who have an HbA1c betwe en 5.7% and 6.4% are consi dered at incre ased risk for devel oping diabe danika in the darian [place] ON: False ly low HbA1c resul ts may be obser bean in patie nts with hemol ytic anemi a, homoz ygous forms of abnor mal hemog lobin (e.g. SS, CC, SC), pregn tashi, recen t blood loss or hemog lobin F great er than 7%. Fruct osami ne may be used as an alter jose test in these cases . REFER ENCE: ADA: Stand ards of Medic al Care in Diabe danika 2019, The Journ al of Clini josefa and Appli ed Resea [facility] and Educa tion Volum e 43, Suppl ement 1 Not Available [facility] (Centralized Electronic Ordering - All Locations) Patient Can Go To The Location Of Their Choice, 11/30/2023 20:51:25 11/30/1912/01/2023 LAB ONLY URINA LYSIS appear/color LIGHT YELLO W CLEAR Not Available [facility] (Centralized Electronic Ordering - All Locations) Patient Can Go To The Location Of Their Choice, 12/01/2023 02:30:40 11/30/1912/01/2023 LAB ONLY URINA LYSIS sp. gravity 1.028 (1.002 -1.030 ) Not Available [facility] (Centralized Electronic Ordering - All Locations) Patient Can Go To The Location Of Their Choice, 12/01/2023 02:30:40 11/30/1912/01/2023 LAB ONLY URINA LYSIS urine pH 6.0 (5.0-8 .0) Not Available [facility] (Centralized Electronic Ordering - All Locations) Patient Can Go To The Location Of Their Choice, 12/01/2023 02:30:40 11/30/1912/01/2023 LAB ONLY URINA LYSIS urine albumin TRACE (neg) abnormal Not Available [facility] (Centralized Electronic Ordering - All Locations) Patient Can Go To The Location Of Their Choice, 12/01/2023 02:30:40 11/30/1912/01/2023 LAB ONLY URINA LYSIS urine glucose NEGATI VE (neg) Not Available [facility] (Centralized Electronic Ordering - All Locations) Patient Can Go To The Location Of Their Choice, 12/01/2023 02:30:40 11/30/1912/01/2023 LAB ONLY URINA LYSIS urine ketones NEGATI VE (neg) Not Available [facility] (Centralized Electronic Ordering - All Locations) Patient Can Go To The Location Of Their Choice, 12/01/2023 02:30:40 11/30/1912/01/2023 LAB ONLY URINA LYSIS urine bilirubin NEGATI VE (neg) Not Available [facility] (Centralized Electronic Ordering - All Locations) Patient Can Go To The Location Of Their Choice, 12/01/2023 02:30:40 11/30/1912/01/2023 LAB ONLY URINA LYSIS urine hemoglobin NEGATI VE (neg) Not Available [facility] (Centralized Electronic Ordering - All Locations) Patient Can Go To The Location Of Their Choice, 12/01/2023 02:30:40 11/30/1912/01/2023 LAB ONLY URINA LYSIS urine nitrite NEGATI VE (neg) Not Available [facility] (Centralized Electronic Ordering - All Locations) Patient Can Go To The Location Of Their Choice, 12/01/2023 02:30:40 11/30/1912/01/2023 LAB ONLY URINA LYSIS urine leukocyte 1+ (neg) abnormal Not Available [facility] (Centralized Electronic Ordering - All Locations) Patient Can Go To The Location Of Their Choice, 12/01/2023 02:30:40 11/30/1912/01/2023 LAB ONLY URINA LYSIS urobilinogen NORMAL mg/dL (norm) Not Available [facility] ([facility] Ordering - All Locations) Patient Can Go To The Location Of Their Choice, 12/01/2023 02:30:40 11/30/1912/01/2023 LAB ONLY URINA LYSIS urine WBCs 8 /hpf (0-5) high Not Available [facility] (Centralized Electronic Ordering - All Locations) Patient Can Go To The Location Of Their Choice, 12/01/2023 02:30:40 11/30/1912/01/2023 LAB ONLY URINA LYSIS urine RBCs <1 /hpf (0-3) Not Available [facility] (Centralized Electronic Ordering - All Locations) Patient Can Go To The Location Of Their Choice, [id number] 12/01/2023 02:30:40 11/30/1912/01/2023 LAB ONLY URINA LYSIS bacteria SLIGHT hpf (neg) abnormal Not Available [facility] (Centralized Electronic Ordering - All Locations) Patient Can Go To The Location Of Their Choice, [id number] 12/01/2023 02:30:40 11/30/1912/01/2023 LAB ONLY URINA LYSIS squamous epith 5 /hpf (0-8) Not Available [facility] (Centralized Electronic Ordering - All Locations) Patient Can Go To The Location Of Their Choice, [id number] 12/01/2023 02:30:40 09/05/2009/05/2024 MAMMO konstantin, digit al, bilat eral No observ ation record ed. [facility] [place] [address] [facility] [place], [address], 09/05/2024 11:23:08 09/06/2009/05/2024 MAMMkonstantin Schumacher, digit al, bilat eral No observ ation record ed. [facility] [address] [place], [address], 09/09/2024 19:52:41 Result Notes None recorded. Problems Name Problem SNOMED Code Status Onset Date Resolution Date Notes Provider Name and Address Organization Details Recorded Time Body mass index 30+ - obesity 289957567 Completed 12/16/2017 Cesar Keller MD [address] [facility] [address], [place], [address] , [facility] 4 10:17:39 Recurren t anxiety 704947961 Active Not Available [facility] 0 01:45:14 Advance directiv douglas heath with patient 622551620 Completed 11/06/2016 [facility] 7 10:04:17 Hypertri glycerid emia 046531106 Active Not Available [facility] 0 01:45:14 Psoriasi s vulgaris 302382854 Active Not Available [facility] 0 01:45:14 Dry eyes 538087465 Completed 11/06/2016 Cathryn Coulter by CARLENE honeycutt, [facility] 7 10:04:12 Essentia l hyperten jazz 32570217 Active 2012 Not Available [facility] 0 01:45:14 Gastroes ophageal reflux disease 742142562 Active 2012 Not Available [facility] 0 01:45:15 Herpes simplex 38533693 Active 2012 Not Available [facility] 0 01:45:15 Psoriasi s 7927859 Active 2012 Not Available [facility] 0 01:45:14 Dysplasi a of cervix 56787457 Active 2012 Not Available [facility] 0 01:45:14 Family history of malignan t neoplasm of ovary 981587659 Active 2015 Not Available [facility] 0 01:45:15 Mammogra phy abnormal 556420737 Completed 201612/06/2016 Cesar Keller MD [address], [place], [address] , [facility] 7 22:31:46 Seborrhe ic dermatit is 76177590 Active 2016 Not Available [facility] 0 01:45:15 Eustachi an tube disorder 42749985 Active 2016 Not Available [facility] 0 01:45:15 Allergic rhinitis 15200204 Active 2016 Not Available [facility] 0 01:45:15 Candidal intertri go 053605200 Completed 201612/16/2017 Cesar Keller MD [address], [place], [address] , [facility] 8 08:54:24 Allergy to bee venom 896431734 Active 2016 Not Available [facility] 0 01:45:15 Multinod ular goiter 898590152 Completed 201605/03/2023 2cm left mid gland nodule Cesar Keller MD [address], [place], [address] , [facility] 3 21:48:03 Allergic conjunct ivitis 240717790 Completed 201606/15/2017 Aranza swain [place] null, 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 2017 Not Available [facility] 0 01:45:15 Undiffer entiated connecti ve tissue disease 340007615 Active 2017 Not Available [facility] 0 01:45:15 Vitamin D deficien cy 89518103 Active 2017 Not Available [facility] 0 01:45:14 Allergic angioede ma 672858580 Active 2018 Not Available [facility] 0 01:45:15 Idiopath ic osteoart hritis 991203188 Active 2018 Not Available [facility] 0 01:45:14 Hiatal hernia 79123738 Active 2018 Not Available [facility] 0 01:45:15 Hypergly cemia 00155292 Completed 201905/25/2022 Cesar Keller MD [address], [place], [address] , [facility] 2 08:59:15 Psoriati c arthriti s 370953939 Active 2021 Cesar Keller MD [address], [place], [address] , [facility] 2 16:57:44 Displace ment of lumbar interver tebral disc without myelopat hy 80991572 Active 2021 Cesar Keller MD [address], [place], [address] , [facility] 2 16:57:57 Impaired fasting glycemia 521909244 Completed 202103/13/2025 Cesar Keller MD [address], [place], [address] , [facility] 5 15:22:11 Pyuria 8128416 Completed 202105/24/2023 Cesar Keller MD [address], [place], [address] , [facility] 3 08:52:23 Liver enzymes level above referenc e range 785718859 Completed 202103/13/2025 Cesar Keller MD [address], [place], [address] , [facility] 5 15:22:08 Mammogra phic mass of right breast 32684154202 248553 Completed 202110/06/2022 Cesar Keller MD [address], [place], [address] , [facility] 2 15:07:24 Cyst of right breast 53674267065 230847 Active 2021 Cesar Keller MD [address] [address], [place], [address] , [facility] 2 15:07:18 Postoper ative hypothyr oidism 86568716 Active 2022 Cesar Keller MD [address] [address], [place], [address] , [facility] 3 23:10:07 Steatoti c liver disease 335436816 Active 2022 Cesar Keller MD [address] [address], [place], [address] , [facility] 3 09:05:36 Pain in right foot 91763215367 9107 Completed 202209/11/2024 Cesar Keller MD [address] [address], [place], [address] , [facility] 4 10:25:37 Prediabe danika 870383010 Active 2023 Cesar Keller MD [address] [address], [place], [address] , [facility] 4 06:25:21 Body mass index 30+ - obesity 856179872 Active 2023 Cesar Keller MD [address] [address], [place], [address] , [facility] 4 10:17:39 Acute conjunct ivitis 07686968 Active 2024 CHETNA BOB- [address] [address], [place], [address] , [facility] 5 11:00:05 Acute infectio us conjunct ivitis 288354845 Active 2024 DENISSE BOBP- [address] [facility], [place], [address] , [facility] 11:00:18 Problem Notes None recorded. Procedures Surgical History Date Name Laterality Status Provider Name and Address Organization Details Recorded Time 024 Most Recent Mammogram completed Mora Garcia [facility] [place] 09/11/2024 09:32:07 024 Mammogram both breasts completed Mora Garcia [facility] [place] 09/11/2024 09:53:33 023 total thyroidectomy completed Marysol Schumacher [facility] 11/19/2022 08:34:31 022 therapeutic aspiration of cyst of breast completed Cesar Keller MD [address] [facility] [address] [place] [address], [address], [facility] 10/13/2022 07:40:31 022 biopsy of thyroid completed Cesar Keller MD [address], [address], [facility] 10/05/2022 21:44:15 022 Biopsy of thyroid completed Cesar Keller MD [address] [facility] [address] [facility], [place], [address], [facility] 11/12/2022 09:33:45 022 Mammogram Screening completed Freda Bazan [facility] 07/27/2022 09:56:44 022 Egd diagnostic brush wash completed Cesar Keller MD [address], [address], [facility] 12/02/2021 19:36:20 022 Colonoscopy completed Cesar Keller MD [address], [address], [facility] 05/31/2022 20:22:21 02/04/2 022 Egd diagnostic brush wash completed Cesar Keller MD [address] [facility] [address] [facility], [place], [address], [facility] 05/31/2022 20:23:06 020 Cerumen Removal completed Cesar Keller MD [address] [facility] [address] [facility], [place], [address], [facility] 11/02/2019 13:04:34 019 iridotomy [address] Anastasia Luis [facility] 04/09/2020 16:04:51 016 Advanced Care Planning completed Cesar Keller MD [address] [facility] [address] [facility], [place], [address], [facility] 11/20/2015 08:22:57 015 Date of Last Pap Smear completed Smitha Pena [facility] 12/03/2016 10:15:20 011 Date of Last Colonoscopy completed Caro Borja [facility] 08/04/2017 15:50:04 011 Colonoscopy completed Cesar Keller MD [address] [facility], [place], [address], [facility] 06/22/2017 16:42:39 011 EGD completed Cesar Keller MD [address] [facility], [place], [address], [facility] 06/22/2017 16:41:37 Dxa bone density study completed [facility] 02/09/2021 15:37:49 Caesarean Section completed Evon leung MA [facility] 11/17/2015 13:02:57 Cystourethroscopy completed Mary Pac [facility] 02/09/2021 15:37:49 Endometrial Ablation completed Evon Bahena MA [facility] 11/17/2015 13:29:43 Removal of fallopian tube completed Cesar Keller MD [address], [place], [address], [facility] 12/01/2016 09:51:03 Imaging Results None recorded. Procedure Notes None recorded. Medical Equipment None Reported. Allergies Allergen ID Allergen Name Allergen Category Reaction Reaction Severity Criticality Documentation Date Start Date Code Code System Note Provider Name and Address Organization Details Recorded Time 36272 Compazine medicatio n Not available Not available [facility] 11/17/20152014 78194 6 RxNorm dysto anabel Cesar Keller MD [address], [place], [address], [facility] 3 08:53:26 95481 clindamyc in Not available hives moderate Not available 11/17/2015 2582 RxNorm Evon Bahena MA null, [facility] 2 08:25:04 95952 honey bee venom environme nt anaphylax is severe Not available 11/17/2015 47490 7 RxNorm Cesar Keller MD [address], [place], [address], [facility] 6 13:36:59 69274 cephalexi n medicatio n rash moderate Not available 04/24/2020 2231 RxNorm Ann Dumont MA null, [facility] 0 09:42:14 Medications Name Sig Start Date Stop Date Status Note LastModified by Organization Details LastModified Time fluzone quadrival ent 9015-6780 .5 ml shena 11/02 completed Not Available Not Available Not Available neomycin/ polymyxin /hc 1 % soln 04/09 completed Not Available Not Available Not Available baclofen 10 mg tabs active Not Available Not Available Not Available valacyclo vir hcl 500 mg tabs 1 tab twice a day 06/15 completed Not Available Not Available Not Available humira pen 40 mg/0.8ml pnkt active Not Available Not Available Not Available erythromy haroon 5 mg/gm oint 11/02 completed Not Available Not Available Not Available olopatadi ne hcl 0.1 % soln 11/02 completed Not Available Not Available Not Available cosentyx sensoread y pen 150 mg/ml soaj 11/02 completed Not Available Not Available Not Available amoxicill in 875 mg tabs 11/02 completed Not Available Not Available Not Available alprazola m 0.5 mg tabs 11/02 completed Not Available Not Available Not Available prednisol one acetate 1 % susp 11/02 completed Not Available Not Available Not Available epipen 2-lisa 0.3 mg/0.3ml soaj 06/15 completed Not Available Not Available Not Available lorazepam 0.5 mg tabs 06/07 completed Not Available Not Available Not Available hydrochlo rothiazid e 25 mg tabs 04/09 completed Not Available Not Available Not Available methotrex ate 2.5 mg tabs 11/02 completed Not Available Not Available Not Available fluocinol one acetonide 0.025 % oint active Not Available Not Available Not Available stelara 45 mg/0.5ml sosy active Not Available Not Available Not Available mometason e furoate 0.1 % oint 11/02 completed Not Available Not Available Not Available polymyxin b sulfate/t rimethopr im sulfate 06314-1.1 unit/ml-% soln 11/02 completed Not Available Not Available Not Available fluconazo le 150 mg tabs 11/02 completed Not Available Not Available Not Available valacyclo vir hydrochlo ride 500 mg tabs 11/02 completed Not Available Not Available Not Available azithromy haroon 250 mg tabs active Not Available Not Available Not Available otezla 30 mg tabs active Not Available Not Available Not Available metoprolo l succinate er 50 mg tb24 1 tab daily by mouth 11/02 completed Not Available Not Available Not Available chlorthal idone 25 mg tabs 06/07 completed Not Available Not Available Not Available folic acid 1 mg tabs 11/02 completed Not Available Not Available Not Available mupirocin 2 % oint active Not Available Not Available Not Available desonide 0.05 % topical cream APPLY AM AND PM RASH FOREHEAD FOR 7 DAYS WHEN NEEDED 02/09 completed Not Available Not Available Not Available neomycin- polymyxin -hydrocor t 3.5 mg/mL-10, 000 unit/mL-1 % ear solution INSTILL 5 DROPS IN THE AFFECTED EAR(S) 4 TIMES DAILY FOR 5 DAYS 05/25 completed Not Available Not Available Not Available azelastin e 0.05 % eye drops 08/31 completed Not Available Not Available Not Available acetamino phen 325 mg tablet TAKE 2 TABLETS BY MOUTH EVERY 4 HOURS FOR 5 DAYS 11/30 completed Not Available Not Available Not Available prednison e 10 mg tablet take 4 tablets by mouth daily for 3 days, then 3 tablets by mouth daily for 3 days, then 2 tablets by mouth daily for 3 days then 1 tablet by mouth daily for 3 days. 01/26 completed Not Available Not Available Not Available ketoconaz ole 2 % shampoo LATHER ON AFFECTED AREA WAIT 5 MIN & RINSE. USE DAILY FOR FLARES & 3 TIMES WEEKLY FOR MAINTENA NCE. active Not Available Not Available No t Available azithromy haroon 250 mg tablet 06/07 completed Not Available Not Available Not Available ofloxacin 0.3 % eye drops INSTILL ONE DROP TO THE RIGHT EYE FOUR TIMES DAILY 05/25 completed Not Available Not Available Not Available fluconazo le 150 mg tablet Take 1 tablet every day by oral route for 2 days. 11/02 completed Not Available Not Available Not Available metoprolo l succinate ER 50 mg tablet,ex tended release 24 hr TAKE 1 TABLET BY MOUTH DAILY active Not Available Not Available No t Available Prilosec 20 mg capsule,d elayed release Take 1 capsule every day by oral route. active Not Available Not Available No t Available Zyrtec 10 mg tablet Take 1 tablet every day by oral route. active Not Available Not Available No t Available chlorthal idone 25 mg tablet 02/15 completed Not Available Not Available Not Available valacyclo vir 500 mg tablet TAKE 1 TABLET BY MOUTH EVERY DAY active Not Available Not Available No t Available peg-elect rolyte solution 420 gram oral solution 05/25 completed Not Available Not Available Not Available levothyro xine 100 mcg tablet Take by oral route for 90 days. 05/24 completed Not Available Not Available Not Available levothyro xine 88 mcg tablet TAKE 1 TABLET BY MOUTH EVERY DAY active Not Available Not Available No t Available alprazola m 0.5 mg tablet Take 1-2 tabs 1 hour before flights MAX PER DAY :4 04/09 completed Not Available Not Available Not Available ofloxacin 0.3 % ear drops INSTILL 10 DROPS INTO AFFECTED EAR(S) BY OTIC ROUTE TWICE DAILY 02/09 completed Not Available Not Available Not Available amoxicill in 875 mg tablet 10/15 completed Not Available Not Available Not Available famotidin e 20 mg tablet 09/01 completed Not Available Not Available Not Available prednisol one acetate 1 % eye drops,tabatha pension 10/15 completed Not Available Not Available Not Available lorazepam 0.5 mg tablet 10/15 completed Not Available Not Available Not Available methotrex ate sodium 2.5 mg tablet TAKE TWO PILLS ONCE WEEKLY. 90 DAYS SUPPLY. 11/30 completed Not Available Not Available Not Available cephalexi n 500 mg capsule Take 1 capsule every 8 hours by oral route for 7 days. 04/24 completed Not Available Not Available Not Available erythromy haroon 5 mg/gram (0.5 %) eye ointment 10/15 completed Not Available Not Available Not Available tacrolimu s 0.1 % topical ointment APPLY 1/4 INCH TO BOTH EYELIDS TWICE DAILY 05/25 completed Not Available Not Available Not Available tobramyci n 0.3 % eye drops 08/31 completed Not Available Not Available Not Available nystatin 100,000 unit/gram topical cream APPLY TO THE AFFECTED AREA(S) BY TOPICAL ROUTE 2 TIMES PER DAY 02/09 completed Not Available Not Available Not Available clotrimaz ole-betam ethasone 1 %-0.05 % topical cream APPLYA SMALL AMOUNT TWICE A DAY APPLY WITH FINGERTI P TO EXTERNAL EAR 2X/DAY [id number] THEN NEEDED 05/25 completed Not Available Not Available Not Available olopatadi ne 0.1 % eye drops Instill 1 drop twice a day by ophthalm ic route as needed for 10 days. 11/04 completed Not Available Not Available Not Available polymyxin B sulfate 10,000 unit-trim ethoprim 1 mg/mL eye drops Instill 1 drop 6 times a day by ophthalm ic route for 7 days. 08/07 completed Not Available Not Available Not Available betametha sone dipropion ate 0.05 % topical cream APPLY TOPICALL Y TO THE AFFECTED AREAS OF PSORIASI S FOR 1-2 WEEKS AT A TIME. DO NOT USE ON THE FACE OR SKIN active Not Available Not Available No t Available sertralin e 25 mg tablet TAKE 1 TABLET BY MOUTH EVERY DAY 12/21 completed foggy/fa tigue Not Available Not Available Not Available diclofena c sodium 75 mg tablet,de layed release TAKE 1 TABLET BY MOUTH TWICE DAILY NEEDED FOR PAIN WITH FOOD 04/13 completed Not Available Not Available Not Available folic acid 1 mg tablet TAKE ONE TAB BY MOUTH DAILY EXCEPT FOR THE DAY THAT YOU TAKE YOUR METHOTRE XATE. 90 DAYS SUPPLY. 11/30 completed Not Available Not Available Not Available hydrocort isone 2.5 % topical cream APPLY A THIN LAYER TO THE AFFECTED AREA(S) BY TOPICAL ROUTE 2 TIMES PER DAY 10/14 completed Not Available Not Available Not Available monteluka st 10 mg tablet 09/01 completed Not Available Not Available Not Available hydrochlo rothiazid e 25 mg tablet TAKE 1 TABLET BY MOUTH EVERY DAY FOR HIGH BLOOD PRESSURE active Not Available Not Available No t Available mometason e 0.1 % topical ointment Apply 1 applicat ion every day by topical route for 14 days. 04/09 completed Not Available Not Available Not Available mupirocin 2 % topical ointment APPLY 1 TEASPOON TOPICALL Y 2 TIMES PER DAY FOR 7 DAYS APPLY TO FOREHEAD ON AFFECTED AREA 02/09 completed Not Available Not Available Not Available fluocinol one 0.025 % topical ointment 08/31 completed Not Available Not Available Not Available nystatin 100,000 unit/gram topical powder 04/09 completed Not Available Not Available Not Available epinephri ne 0.3 mg/0.3 mL injection , auto-inje ctor INJECT 0.3 MG INTO THE MUSCLE NEEDED .MAY REPEAT DOSE AGAIN active Not Available Not Available No t Available ketoconaz ole 2 % topical cream APPLY TO THE AFFECTED TOPICAL AREA OF THE EARS AND FACEBID NEEDED active Not Available Not Available No t Available betametha sone dipropion ate 0.05 % topical ointment Apply 2 applicat ions every day by topical route for 15 days. 11/30 completed Not Available Not Available Not Available clobetaso l 0.05 % scalp solution APPLY TO AFFECTED AREAS AROUND EARS 1-2 TIMES DAILY FOR ONE WEEK AT A TIME. active Not Available Not Available No t Available SF 5000 Plus 1.1 % dental cream 06/15 completed Not Available Not Available Not Available fluticaso ne propionat e 50 mcg/actua tion nasal spray,tabatha pension 09/01 completed Not Available Not Available Not Available doxycycli ne hyclate 100 mg tablet TAKE 1 TABLET BY MOUTH TWICE A DAY FOR 7 DAYS 02/09 completed Not Available Not Available Not Available levothyro xine 112 mcg tablet Take 1 tablet every day by oral route for 90 days. 01/12 completed Not Available Not Available Not Available amoxicill in 875 mg-potass ium clavulana te 125 mg tablet 08/31 completed Not Available Not Available Not Available nabumeton e 500 mg tablet Take 1 tablet twice a day by oral route as needed for 30 days. 09/11 completed Not Available Not Available Not Available tobramyci n 0.3 %-dexamet hasone 0.1 % eye drops,tabatha pension APPLY 1 DROP TO BOTH EYES THREE TIMES DAILY FOR ONE WEEK ONLY, THEN DISCONTI NUE. 02/09 completed Not Available Not Available Not Available neomycin 3.5 mg/g-poly myxin B 10,000 unit/g-de xameth 0.1 % eye oint APPLY TO BOTH EYELIDS 3 TIMES A DAY THEN NEEDED 05/25 completed Not Available Not Available Not Available neomycin- polymyxin -hydrocor t 3.5 mg-10,000 unit/mL-1 % ear drops,tabatha p INSTILL 4 DROPS INTO AFFECTED EARS 3-4 TIMES PER DAY active Not a medicati on that should be refilled with some sort of an evaluati on. Not Available Not Available Not Available ciclopiro x 0.77 % topical cream APPLY TOPICALL Y 2 TIMES A DAY TO AFFECTED AREAS IN GROIN. 02/09 completed Not Available Not Available Not Available ciproflox acin 0.3 %-dexamet hasone 0.1 % ear drops,tabatha pension APPLY 4 DROP INTO BOTH EARS TWICE A DAY X 14 DAYS 05/25 completed Not Available Not Available Not Available clobetaso l 0.05 % shampoo Apply 1 applicat ion twice a week by topical route as needed for 30 days. active PRN Not Available Not Available No t Available metronida zole 1 % topical gel APPLY TO THE AFFECTED AREA(S) BY TOPICAL ROUTE ONCE DAILY ; RUB IN GENTLY AND COMPLETE LY 10/14 completed Not Available Not Available Not Available Diflucan 1 TAB(S), 150 MG, ONCE, 1 DOSE(S) 04/09 completed Not Available Not Available Not Available biotin 1 daily 07/24 completed Not Available Not Available Not Available Prilosec 1 TAB(S), 20 MG, ONCE A DAY, 14 DAY(S) 04/09 completed Not Available Not Available Not Available Valtrex 1 TAB, 500 MG, BID, DAYS 04/09 completed Not Available Not Available Not Available fluocinol one acetonide oil 0.01 % ear drops APPLY 4 DROPS TO EACH EAR 2 TIMES A WEEK AND NEEDED 05/25 completed Not Available Not Available Not Available cholecalc iferol (vitamin D3) 1,250 mcg (50,000 unit) capsule TAKE 1 CAPSULE( S) BY MOUTH EVERY WEEK 06/16 completed Not Available Not Available Not Available Align (B.infant is) 2 gummies daily 03/05 completed Not Available Not Available Not Available Stelara 45 mg/0.5 mL subcutane ous syringe 01/25 completed Not Available Not Available Not Available Cosentyx 150 mg/mL subcutane ous syringe Inject 300 mg every 4 weeks by subcutan eous route. 02/09 completed Not Available Not Available Not Available Cosentyx Pen 300 mg/2 pens (150 mg/mL) subcutane ous pen injector Inject 300 mg every month by sub-q route for 28 days. 02/09 completed Not Available Not Available Not Available Taltz Autoinjec tor (3 Pack) 80 mg/mL subcutane ous 04/13 completed Not Available Not Available Not Available Xatmep 2 TAB, 10 MG, ONCE A WEEK, 30 DAY(S) 02/15 completed Not Available Not Available Not Available Skyrizi 150 mg/1.66 mL(75 mg/0.83 mL x 2) subcutane ous syringe kit 05/25 completed Not Available Not Available Not Available Fluzone Quad (PF) 60 mcg (15 mcg x 4)/0.5 mL IM syringe 04/09 completed Not Available Not Available Not Available Airborne (ascorbic acid) 3 gummies daily active Not Available Not Available No t Available Skyrizi 150 mg/mL subcutane ous syringe Inject 150 mL every 3 months by sub-q route for 84 days. 05/24 completed Not Available Not Available Not Available Skyrizi 150 mg/mL subcutane ous pen injector every 3 months active Not Available Not Available No t Available Vitals Date Recorded Body height Body mass index (BMI) Body weight Heart rate Body temperature Systolic And Diastolic Provider Name and Address Organization Details Last Updated DateTime 4 149.23 cm 30.7 kg/m2 09238.6 6 g 71 /min 98.5 [degF] 124/91 mm[Hg] Perla Lynch LPN [facility] 4 14:50:51 Date Recorded Body height Body mass index (BMI) Body weight Heart rate Oxygen saturation Oxygen saturation in Arterial blood by Pulse oximetry Body temperature Systolic And Diastolic Provider Name and Address Organization Details Last Updated DateTime 4 149.23 cm 30.3 kg/m2 60370.2 6 g 66 /min 98 % 98 % 98 [degF] 132/85 mm[Hg] [facility] 4 08:59:26 Date Recorded Body height Body mass index (BMI) Body weight Heart rate Oxygen saturation Oxygen saturation in Arterial blood by Pulse oximetry Body temperature Systolic And Diastolic Provider Name and Address Organization Details Last Updated DateTime 5 149.23 cm 31.2 kg/m2 12363.6 3 g 74 /min 98 % 98 % 97.7 [degF] 120/79 mm[Hg] [facility] 5 15:34:08 Date Recorded Body height Body mass index (BMI) Body weight Heart rate Oxygen saturation Oxygen saturation in Arterial blood by Pulse oximetry Body temperature Systolic And Diastolic Provider Name and Address Organization Details Last Updated DateTime 5 149.23 cm 31 kg/m2 21619.0 4 g 68 /min 98 % 98 % 98.5 [degF] 126/84 mm[Hg] Aranza palacios MA [facility] 5 10:36:10 Date Recorded Body height Body mass index (BMI) Body weight Heart rate Oxygen saturation Oxygen saturation in Arterial blood by Pulse oximetry Body temperature Systolic And Diastolic Provider Name and Address Organization Details Last Updated DateTime 4 149.23 cm 31.8 kg/m2 82898.4 1 g 77 /min 97 % 97 % 97.2 [degF] 134/86 mm[Hg] Mora Garcia MA [facility] 4 09:38:09 Social History Question Answer Notes LastModified by Organizat ion Details LastModified Time Tobacco Smoking Status Never Smoker CARLENE Mendiola, [facility] 11/17/2015 13:24:26 Do You Have An Advance Directive? Yes HCP/ -Alistair rodríguez, Sister Elías Information not available 02/09/2021 Is Blood Transfusion Acceptable In An Emergency? Yes Information not available 11/17/2015 What Is Your Level Of Caffeine Consumption? Moderate 1 Cup Of Coffee Daily Information not available 07/24/2025 How Much Tobacco Do You Chew? None Information not available 06/15/2017 What Type Of Diet Are You Following? REGULAR Tries To Limit Sugar Information not available 09/11/2024 Which Illicit Or Recreational Drugs Have You Used? None Information not available 11/17/2015 Live Alone Or With Others? With Others (Roman), 2 Cats Information not available 05/25/2022 Do You Take Precautions To Prevent Distracted Driving? Yes Information not available 11/17/2015 How Often Do You Need To Have Someone Help You When You Read Instructions, Pamphlets, Or Other Written Material From Your Doctor Or Pharmacy? Never Information not available 11/17/2015 Have You Served In The ? No Information not available 12/01/2016 Have You Or Anyone In Your Household Had Any Of The Following Symptoms In The Last 14 Days: Sore Throat, Cough, Chills, Body Aches For Unknown Reasons, Shortness Of Breath For Unknown Reasons, Loss Of Smell, Loss Of Taste, Fever At Or Greater Than 100 Degrees Fahrenheit? No [email or web address] Information not available 04/24/2020 Are You Or Anyone In Your Household A Health Care Provider Or Emergency Responder? No [email or web address] Information not available 04/24/2020 To The Best Of Your Knowledge Have You Been In Close Proximity To Any Individual Who Tested Positive For COVID-19? No [email or web address] Information not available 04/24/2020 *AWV ONLY* Are You Presently Prescribed Opioid Medication By PCP Or Specialist? If YES -Provider Assess The Benefit For Other, Non-opioid Pain Therapies Instead, Even If The Patient Does Not Have OUD But Is Possibly At Risk. No Information not available 05/25/2022 What Was The Date Of Your Most Recent Tobacco Screening? 07/24/2025 Information not available 07/24/2025 How Many Children Do You Have? 1 Mandi Burton And Roderick (Michele ) Information not available 07/24/2025 Do You Use Protection During Sex? No Information not available 06/15/2017 Seat Belts Used Routinely Yes Information not available 11/17/2015 Are You Sexually Active? Yes Information not available 12/01/2016 Smoke Alarm In Home Yes Information not available 11/17/2015 At What Age Did You Start Smoking Tobacco? 0 Information not available 06/15/2017 Are You Passively Exposed To Smoke? No Information not available 11/17/2015 How Much Tobacco Do You Smoke? No Information not available 12/01/2016 Do You Use Sunscreen Routinely? Yes Information not available 11/17/2015 How Many Years Have You Smoked Tobacco? 0 Information not available 06/15/2017 Sex: Unknown Functional Status Question Answer Note LastModified by Organizat ion Details LastModified Time Do you use any illicit or recreational drugs? No Information not available 05/25/2022 Do you or have you ever used any other forms of tobacco or nicotine? No Information not available 05/25/2022 What is your level of alcohol consumption? Occasional Information not available 11/17/2015 Do you or have you ever used smokeless tobacco? Never used smokeless tobacco [email or web address] Information not available 04/09/2020 Are you currently employed? Yes [place] program Information not available 05/25/2022 Are you able to walk independently without assistance or assistive devices? YESWOREST Information not available 05/25/2022 Are you able to care for yourself independently? 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 Never used electronic cigarettes Information not available 02/09/2021 What is your exercise level? Occasional walking Information not available 09/11/2024 Mental Status None recorded. Family History Relationship Description Onset Age of this Age Resolved Age Notes LastModified by Organization Details LastModified Time Maternal Grandfather Harmful pattern of use of alcohol abolcun Not available 2015 15:22:49 Mother Malignant neoplasm of ovary 70 [email or web address] Not available 12/16 08:49:12 Father Arthritis abolcun Not available 11/27/2015 15:22:49 Father Diabetes mellitus abolcun Not available 2015 15:22:49 Father Hypertensive disorder abolcun Not available 2015 15:22:49 Father Hypercholest erolemia abolcun Not available 2015 15:22:49 Father Malignant neoplastic disease 77 skin abolcun Not available 2021 08:48:59 Father Polyp of colon [email or web address] Not available 05/25 08:56:20 Father Congestive heart failure [email or web address] Not available 09/11 10:09:19 Father Vascular dementia [email or web address] Not available 15:37:48 Paternal Grandmother Arthritis abolcun Not available 11/17 15:22:49 Paternal Grandmother Malignant neoplasm of breast abolcun Not available 2015 15:22:49 Paternal Grandfather Malignant neoplasm of colon abolcun Not available 2015 15:22:49 Sister Diabetes mellitus abolcun Not available 2015 15:22:49 Maternal Grandmother Hypertensive disorder abolcun Not available 2015 15:22:49 Maternal Grandmother Heart disease abolcun Not available 2015 15:22:49 Maternal Grandmother Malignant neoplasm of lung abolcun Not available 2015 15:22:49 Daughter Post-traumat ic stress disorder [email or web address] Not available 2020 15:37:49 Medical History Condition Response Skin Problems Y Obesity Y Thyroid Problems Y Hypertension Y Gynecological History Statement/Question Response Abnormal Pap N Date of Last Pap Smear 01/10/2015 Date of Last Colonoscopy 03/05/2011 Most Recent Mammogram 09/05/2024 Most Recent Bone Density Obstetrics History GPAL:G 0 P 0 0 0 0 Immunizations Vaccine Type Date Status Note Provider Nam e and Address Organization Details Recorded Time Influenza, injectable,quadriva lent, preservative free, pediatric [address] [facility] 07/29/2020 11:54:31 Tdap [address] [facility] 07/29/2020 11:54:32 TST-PPD intradermal 6 completed Not Available [facility] 11/28/2023 08:50:38 Influenza, split virus, trivalent, preservative [address] [facility] 07/29/2020 11:54:32 Influenza, split virus, trivalent, preservative [address] [facility] 05/25/2022 08:24:55 Influenza, split virus, quadrivalent, preservative [address] [facility] 07/29/2020 11:54:31 Influenza, split virus, quadrivalent, preservative 9 completed Not Available [facility] 11/28/2023 08:50:37 Influenza, MDCK, quadrivalent, PF [address] [facility] 05/25/2022 08:24:55 COVID-19, mRNA, LNP-S, PF, 100 mcg/0.5mL dose or 50 mcg/0.25mL dose 1 completed Evon Bahena MA null, [facility] 05/25/2022 08:24:55 COVID-19, mRNA, LNP-S, PF, 100 mcg/0.5mL dose or 50 mcg/0.25mL dose 1 completed Evon Bahena MA null, [facility] 05/25/2022 08:24:55 Influenza, split virus, quadrivalent, PF 1 completed CARLENE Mendiola, [facility] 05/25/2022 08:24:55 Influenza, split virus, quadrivalent, PF 9 completed Evon Bahena MA null, [facility] 05/25/2022 08:24:55 Influenza, MDCK, quadrivalent, PF 2 completed Mora Garcia MA null, [facility] 05/24/2023 08:25:58 Influenza, MDCK, quadrivalent, PF 3 completed Perla Lynch LPN null, [facility] 11/04/2023 14:51:07 Influenza, split virus, trivalent, PF 4 completed Mora Garcia MA null, [facility] 09/11/2024 09:31:45 zoster recombinant 4 completed Caro Borja null, [facility] 09/12/2024 11:48:58 Pneumococcal conjugate PCV20, polysaccharide [id number] conjugate, adjuvant, PF 4 completed Caro Borja null, [facility] 09/12/2024 11:48:58 Tdap 4 completed Caro Borja null, [facility] 09/12/2024 11:48:58 zoster recombinant 5 completed Marysol Schumacher null, [facility] 11/12/2024 12:49:35 Pneumococcal conjugate PCV20, polysaccharide [id number] conjugate, adjuvant, PF 4 completed Not Available [facility] 07/24/2025 10:25:21 Tdap 4 completed Not Available [facility] 07/24/2025 10:25:21 zoster recombinant 4 completed Not Available [facility] 07/24/2025 10:25:21 Influenza, split virus, trivalent, PF [address] [facility] 07/24/2025 11:41:17 Past Encounters Encounter ID Performer Location Encounter Start Date Encounter Closed Date Diagnosis/Indication Diagnosis SNOMED-CT Code Diagnosis ICD10 Code Diagnosis IMO Codes Diagnosis Note [id number] Cesar Keller MD Main Office [address] [facility] [address] [place] [address] 11/17/2015 12:43:59 11/17/2015 14:06:53 Adult health examination 621638093 Z00.01 Immunizati on status and screening utd based on risk factors. Regular dental and ophtho care advised as well as seatbelt and sunscreen use. Cervical, and breast cancer screening utd per pt, will track down reports. Due for colonosoco py f/u secondary to family history. Advance directives discussed and in place. Body mass index 30+ - obesity 217981575 Z68.30 Multinodular goiter 2375 27368 E04.9 Followed by endo Screening for malignant neoplasm of colon 965637976 Z12.11 Essential hypertension 61017251 I10 Needs better control. Will try diuretic and reassess. Common/ser ious potential side effects discussed. Recurrent anxiety 854364 001 F41.9 Uses for flying. Short term rx provided. Advance di rective discussed with patient 324920046 Z71.89 [id number] Cesar Keller MD Main Office [address] [facility] [address] [place] [address] 11/27/2015 15:07:16 11/27/2015 16:16:55 Essential hypertension 99653807 I10 Excellent response to diuretic alone. Pt advised to call with any problems and to have fasting labs done daquan to verify electrolyt es and renal function are normal. Body mass index 30+ - obesity 222843428 Z68.30 Pt plans to pursue a nutrition consultati on. Hypertriglyceridemia 302 574424 E78.1 Noted on labs in the Fall. Will make sure that thiazide is not making it worse. Low fat/CHO and high fiber diet as well as regular exercise advised. [id number] Ceasr Keller MD Main Office [address] [place] [address] 06/07/2016 08:01:31 06/07/2016 09:02:07 Essential hypertension 44156950 I10 Well controlled , continue current regimen. Dry eyes 748450793 H04.1 29 Given reported xerostomia as well and other autoimmune disease will assess further by screening for Sjogrens. Pt will arrange ophtho eval daquan. Gastroesop hageal reflux disease 636795266 K21.9 Will try slow wean off of PPI and call if having problems. I would prefer to transition her to H2B in place of chronic PPI if symptoms allow. [id number] Michele thompson MD Main Office [address] [address] [place] [address] 11/06/2016 09:53:58 11/06/2016 10:57:38 Sinusitis 73830036 J32.9 Vaginitis 50409193 N76.0 [id number] Cesar Keller MD Main Office [address] [place] [address] 12/01/2016 09:01:14 12/01/2016 10:15:28 Adult health examination 971753322 Z00.01 Immunizati on status and screening utd based on risk factors. Regular dental and ophtho care advised as well as seat belt and sunscreen use. Cervical, and breast cancer screening utd per pt, will track down reports. Advance directives in place. Hypertriglyceridemia 302 053779 E78.1 Body mass index 25-29 - overweight 017483466 E66.3 Z68.25 Chronic sinusitis 632343 00 J32.9 Suspect incomplete tx with amox last month. Will broaden coverage. Acute otitis externa 302 20623 H60.512 Call inb/worse. Essential hypertension 19622030 I10 Gastroesop hageal reflux disease 023334681 K21.9 Did not tolerate PPI wean. Without warning signs will contiue current regimen. [id number] Madie Payton PA-C Main Office [address] [address] [place] [address] 01/10/2017 15:44:52 01/10/2017 16:43:16 Eustachian tube disorder 16539348 H69.93 Ongoing issues with sinuses. NO previous allergy evaluation . Will refer to ENT and allergy . Use Fluticason e and continue antihistam josé antonio. Sinus XRAys. Allergic rhinitis 480526 04 J30.1 start otc antihistam josé antonio as discussed as well as nasal saline solution. Candidal intertrigo 2661 33964 B37.2 Apply Lotrisone behind both ears BID. Infection of ear lobe 95 243107 H60.8X9 [id number] Cesar Keller MD Main Office [address] [address] [place] [address] 06/15/2017 13:17:49 06/15/2017 14:02:08 Essential hypertension 66715160 I10 Well controlled , continue current regimen. Gastroesop hageal reflux disease 368854347 K21.9 Did not tolerate PPI wean. Is currently without warning signs. Will continue current regimen. Cellulitis of nasal mucous membrane 2931347275 08057 J34.0 Responding well to cephalospo rin. Advised to call if recurrent/ persistent . [id number] Madie Payton PA-C Main Office [address] [address] [place] [address] 10/03/2017 14:58:59 10/03/2017 16:04:50 Dysuria 64379547 R30.0 Acute sinusitis 80582788 J01.90 [id number] Cesar Keller MD Main Office [address] [address] [place] [address] 12/16/2017 08:19:25 12/16/2017 09:13:55 Adult health examination 185634890 Z00.00 Immunizati on status and screening utd based on risk factors. Regular dental and ophtho care advised as well as seat belt and sunscreen use. Cervical, and breast cancer screening utd has insurance sales assistant appt in a couple months. Advance directives in place. Hypertriglyceridemia 302 303546 E78.1 Will monitor and discuss mgmt based on CVD risk score. Essential hypertension 78871296 I10 Well controlled , continue current regimen. Body mass index 25-29 - overweight 739635362 E66.3 Z68.29 Multinodular goiter 2375 97710 E04.9 Followed by endo, due for labs. Gastroesop hageal reflux disease 955296044 K21.9 Did not tolerate PPI wean. Is currently without warning signs. Will continue current regimen. Generalize d anxiety disorder 95106571 F41.1 Intermitte nt issue. Will provide rx for PRN anxiolytic and monitor use. Therapy discussed/ declined. [id number] Cesar Keller MD Main Office [address] [place] [address] 01/02/2018 14:41:54 01/02/2018 15:17:23 Cellulitis of face 233369957 L03.211 ? secondary to abrasion vs sinusitis. Either way Augmentin should afford adequate control. Pt advised of common/ser ious side effects and to call with any problems. Call if swelling worsens/fe kuldeep develops or symptoms fail to improve. Would need broader coverage and assessment for deeper infection. Acute sinusitis 30168284 J01.90 [id number] Madie Payton PA-C Main Office [address] [place] [address] 03/27/2018 15:00:34 03/27/2018 16:36:34 Facial swelling 942790284 R22.0 Swelling and rash ongoing in the face. ? weather related to autoimmune disease as JOHN is positive and pt. responded very well to Prednisone vs delayed reaction to psoriasis meds. Pt. is advised to see rheum. and derm. as soon as possible to be able to see rash at it's worse. Pt. has ja with Dr. Mayer's office this week. Pt. will call / Bernadette's office. Will try topical steroid Eruption 195233834 R21 Rosacea 008211083 L71.9 [id number] Cesar Keller MD Main Office [address] [place] [address] 09/01/2018 09:05:10 09/01/2018 09:54:37 Gastroesophageal reflux disease 039864609 K21.9 Did not tolerate PPI wean. Is currently without warning signs. Will continue current regimen. Essential hypertension 70403502 I10 Well controlled , continue current regimen. Seborrheic dermatitis 50 739540 L21.9 Vitamin D deficiency 347 32371 E55.9 Level was 12 in January. Not on supplement . Will start high dose and recheck in 3 months. Quantitati ve abnormality of granulocytes 655363879 D72.9 ? significan ce. Will see if persistent . Consider heme consult if so or if other marraow cell lines are abnormal. [id number] Cesar Keller MD Main Office [address] [facility] [address] [place] [address] 10/14/2018 09:51:36 10/14/2018 10:48:26 Facial swelling 500314087 R22.0 ? rosacea vs allergic process vs sjogrens vs medication side effects vs psoriasis related. Will see if another prednisone taper helps. Has not been seen by allergy for this, will ask them for input. [id number] Megan jay MD Main Office [address] [facility] [address] [place] [address] 01/26/2019 09:20:18 01/26/2019 10:38:09 Adult health examination 244053348 Z00.00 Pt in good general health. He sees the dentist and eye providers. HCM screenings up to date, due for colon this year Tdap up to date, Pt needs to gets 20+ minutes exercise at least 5 days a week. Diet is balanced, see history for lifestyle choices Fear of flying 872948658 F40.243 small rx to use for upcoming trip. Side effects discussed Psoriasis vulgaris 5007 L40.0 followed by dermatolog y, on cosentyx and methotrexa te Hypertriglyceridemia 302 265908 E78.2 Discussed lowering fat and sweets/car bsin diet, recheck BS and lipids in 3 months [id number] Megan jay MD Main Office [address] [facility] [address] [place] [address] 06/16/2019 09:58:16 06/16/2019 10:45:03 Bacterial conjunctivitis 083399071 H10.9 pt with return of bacterial conjunctiv its with some skin irritation , I recc pt use erythromyc in eye ointment and place some on surroundin g tissue, after tx with this for 10 days she will start patanol since some of the problem is allergic rhinitisl Allergic conjunctivitis 979281001 H10.13 use after tx with abx Otitis media 25118022 H6 6.91 tx for OM, has discomfort , hum can hear there is a moderate interactio n with amox and mtx, pharmacy called, I told pharmacy to fill med and left message on pts cell to hold one dose of the MTX while on amox, amox can increase serum levels Vulvovaginitis 92316521 N76.0 [id number] Cesar Keller MD Main Office [address] [place] [address] 08/17/2019 13:20:45 08/17/2019 14:12:21 Essential hypertension 64040809 I10 Well controlled , continue current regimen. Gastroesop hageal reflux disease 143139225 K21.9 Did not tolerate PPI wean. Is currently without warning signs. Will continue current regimen, and ask GI to consider EGD. Screening for malignant neoplasm of colon 131421039 Z12.11 Excessive sweating 19734 005 R61 needs note for work. [id number] Cesar Keller MD Main Office [address] [place] [address] [place] [address] 11/02/2019 10:40:05 11/02/2019 11:29:27 Impacted cerumen in right ear 9190730484 888738 H61.21 Irrigated in the office with success. Cover for OE. Call if recurrent or if other issues develop. Preventiti ve measured disucssed/ advised. Otitis externa 9548111 H 60.91 [id number] Megan jay MD Main Office [address] [place] [address] [place] [address] 04/09/2020 14:51:54 04/09/2020 16:29:00 Adult health examination 612708644 Z00.00 Pt in good general health. She sees the dentist and eye providers. HCM screenings up to date, due for colon this year Tdap up to date, Pt needs to gets 20+ minutes exercise at least 5 days a week. Diet is balanced, see history for lifestyle choices Essential hypertension 06158705 I10 BP controlled , continue present meds, due for EKG , will do next ov Herpes simplex 84311154 B00.9 controlled on daily supression Screening for malignant neoplasm of colon 296486074 Z12.11 due tor colon, pt will make appt, has seen Dr Talavera Cellulitis 801288527 L03 .90 RIght ear and canal red and swollen, take meds and recheck in a week. Easy bruising 734834733 R58 noted on hands check labs Psoriasis 1670931 L40.9 followed by rosie, stable on cosentyx [id number] Megan jay MD Main Office [address] [facility] [address] [place] [address] 04/24/2020 09:20:32 04/24/2020 11:13:33 Otitis externa 1011286 H60.11 offered drops if ENT cannot see her soon. ENT states pt had appt this week and did not want to come in. She can reschedule for close evaluation Hyperglycemia 13976874 R 73.9 hgba1c 5.8, pre diabetes, will work on decreasing carbs, more exercise, declines oracle software engineer Psoriasis 9070137 L40.9 followed by rosie, stable on cosentyx Seborrheic dermatitis 50 936564 L21.9 call derm about eye and what cream best to use, has allergy eye drops to use [id number] Megan jay MD Main Office [address] [facility] [address] [place] [address] 02/09/2021 15:36:27 02/09/2021 16:55:18 Essential hypertension 06428398 I10 BP controlled , continue present meds and see if BP normalizes with less stress at home. Will get a cuff to check at home. Discussed good diet and adding back exercise at least every other day. She is due for EKG , will do next ov Generalize d anxiety disorder 16350142 F41.1 Discussed counseling Psoriasis 4696108 L40.9 followed by rosie, started new med [id number] Megan jay MD Main Office [address] [facility] [address] [place] [address] 04/13/2021 08:46:58 04/13/2021 10:00:19 Adult health examination 245494157 Z00.00 Pt in good general health. She sees the dentist and eye providers. She is due for colon this year, will see insurance sales assistant, mammogram due in May and would like to have a bone density. Tdap up to date, had covid vaccine. Pt needs to gets 20+ minutes exercise at least 5 days a week. Diet is balanced, see history for lifestyle choices Essential hypertension 08387917 I10 BP controlled , continue present meds, due for EKG Herpes simplex 22451442 B00.9 controlled on daily supression Screening for malignant neoplasm of colon 854640415 Z12.11 due for colon, pt will make appt, has seen Dr Talavera, would like to go to [facility] Psoriasis 8126473 L40.9 followed by satya johnson on Skyrizi and will be using relafen Postmenopa usal osteopenia 117272677 M85.80 will check bone density Screening for malignant neoplasm of breast 280207960 Z12.39 Osteopenia 012166217 M85 .80 [id number] Cesar Keller MD Main Office [address] [facility] [address] [place] [address] 05/25/2022 08:16:00 05/25/2022 09:15:55 Adult health examination 493123712 Z00.00 Immunizati on status and screening utd based on risk factors. COVID 19 boosters and Flu shot in the Fall advised. Regular dental and ophtho care advised as well as seat belt and sunscreen use. Cervical, and breast cancer screening utd has insurance sales assistant appt in a couple months. Advance directives in place. Varicella vaccination 68 485560 Z23 Essential hypertension 42410885 I10 Well controlled , continue current regimen. Screening for malignant neoplasm of breast 983210020 Z12.39 Screening for malignant neoplasm of cervix 265083315 Z12.4 Screening for malignant neoplasm of colon 585813858 Z12.11 Hepatitis C screening 41 3660862 Z11.59 Generalize d anxiety disorder 17375116 F41.1 Intermitte nt issue. Will provide rx for PRN anxiolytic and monitor use. Therapy discussed/ declined. Gastroesop hageal reflux disease 369040336 K21.9 Did not tolerate PPI wean. Is currently without warning signs. Will continue current regimen, and ask GI to consider EGD. Hypertriglyceridemia 302 681412 E78.2 Will monitor and discuss mgmt based on CVD risk score. Vitamin D deficiency 347 12588 E55.9 Hiatal hernia 26751640 K 44.9 On PPI Menopause present 505602 006 Z78.0 Multinodular goiter 2375 14944 E04.9 Followed by endo, due for labs. Sj gren's syndrome 87364915 M35.[address] Song. [id number] Cesar Keller MD Main Office [address] [place] [address] 11/30/2022 09:52:01 11/30/2022 10:44:00 Essential hypertension 53655735 I10 Well controlled , continue current regimen. Hypertriglyceridemia 302 967083 E78.2 Will monitor and discuss mgmt based on CVD risk score. Postoperat laurita hypothyroidism 83317225 E89.0 Early to recheck labs but needs f/u liver testing so I will check. Liver enzy mes level above reference range 814581779 R74.01 Possibly related to risankizum ab, but will refer for imaging if persistent . [id number] Cesar Keller MD Main Office [address] [facility] [address] [place] [address] 05/24/2023 08:16:52 05/24/2023 09:18:50 Adult health examination 740214786 Z00.00 Immunizati on status and screening utd based on risk factors. COVID 19 boosters and Flu shot in the Fall advised. Regular dental and ophtho care advised as well as seat belt and sunscreen use. Cervical, and breast cancer screening utd has insurance sales assistant appt in a couple months. Advance directives in place. Steatotic liver disease 889784055 K76.0 Making dietary changes, will monitor. Body mass index 30+ - obesity 545899568 Z68.30 E66.9 Pt plans to pursue a nutrition consultati on. Psoriasis 8776677 L40.9 Well controlled , following with derm. Postoperat laurita hypothyroidism 82701201 E89.0 [place]. TSH in March was normal. Will monitor. Adjustment disorder with mixed emotional features 79857006 F43.23 Still rattled by recent home break in. Will monitor. Pain in right foot 70915 50177 26595 M79.671 Essential hypertension 16790923 I10 Well controlled , continue current regimen. Impaired f asting glycemia 013920189 R73.01 Vitamin D deficiency 347 52482 E55.9 Varicella vaccination 68 381125 Z23 [id number] CELIA BRAVO Main Office [address] [address] [address] [place] [address] 11/04/2023 14:37:37 11/04/2023 15:04:20 Acute conjunctivitis 69590324 H10.32 x2 days of left eye erythema and pruritis. Woke up with eye crusting.- Denies of any changes in vision, trauma, or recent URI-will provide polymyxin eye drops-disc ussed conservati ve measuremen ts such as warm compress [id number] Cesar Keller MD Main Office [address] [address] [place] [address] 11/28/2023 08:48:05 11/28/2023 09:44:26 Allergy to bee venom 230199604 Z91.030 Essential hypertension 73888988 I10 Well controlled , continue current regimen. Postoperat laurita hypothyroidism 60718196 E89.0 Management transferre [place] [facility]. Generalize d anxiety disorder 59546268 F41.1 Will try low dose SSRI and titrate dose as tolerated. Pt will investigat e options via insurance. Vitamin D deficiency 347 69244 E55.9 Overdue for labs, pending from the Fall. Snoring 00714087 R06.83 Consider Insomnia 466968184 G47.0 0 Try melatonin otc [id number] Cesar Keller MD Main Office [address] [address] [place] [address] 09/11/2024 09:22:20 09/11/2024 10:34:03 Adult health examination 822138983 Z00.00 Due for tetanus, PCV, Shingrix and COVID 19 boosters. Regular dental and ophtho care advised as well as seat belt and sunscreen use. Cervical, and breast cancer screening utd has insurance sales assistant appt in a couple months. Advance directives in place. Screening for malignant neoplasm of breast 364107284 Z12.39 Screening for malignant neoplasm of cervix 337528156 Z12.4 Screening utd, followed by insurance sales assistant. Varicella vaccination 68 467296 Z23 Requires a tetanus booster 471471370 Z28.39 Tdap advised with new grandchild . Administra tion of pneumococcal vaccine 14117144 Z23 Body mass index 30+ - obesity 512647256 E66.9 Z68.31 Pt plans to pursue a nutrition consultati on. Essential hypertension 42933463 I10 Well controlled , continue current regimen. Gastroesop hageal reflux disease 545256242 K21.9 Did not tolerate PPI wean. Is currently without warning signs. Will continue current regimen. Prediabetes 468434195 R7 3.03 Will monitor. Vitamin D deficiency 347 71593 E55.9 Borderline low last year, will reasses. Sj gren's syndrome 74788891 M35.[address] Song. Postoperat laurita hypothyroidism 88873327 E89.0 Management transferre d [place] [facility]. [id number] Ceasr Keller MD Main Office [address] [address] 03/05/2025 15:05:41 03/05/2025 15:57:11 Impaired fasting glycemia 989067934 R73.01 Overdue for f/u labs, will go to [facility]. Essential hypertension 87973517 I10 Well controlled , continue current regimen. Hypertriglyceridemia 302 986316 E78.2 Will monitor and discuss mgmt based on CVD risk score. Would consider a lower threshold for starting statin in light of her chronic inflammato ry condition (psoriasis ). Postoperat laurita hypothyroidism 99669102 E89.0 Needs labs, will refill rx, pt to go daquan. Herpes simplex 65913485 B00.9 [id number] Cesar Keller MD Main Office [address] [facility] [address] [place] [address] 07/24/2025 10:23:17 07/24/2025 11:00:40 Needs influenza immunization 434416070 Z23 19 YEARS AND OLDER ONLY Acute infe ctious conjunctivitis 963045526 H10.32 49778630 - Patient presenting with acute eye erythema, foreign body sensation and irritation , and eye discharge. Discharge described as thick and sticky with some crusting. Discharge not appreciate d on exam. No red flags in history or exam. Given history of Sjogren syndrome and dry eyes, patient at increased risk for infection and complicati ons of infection. Based on H+P, managing as a bacterial conjunctiv itis.- Prescribin g antibiotic eye drops. Reviewed administra tion with patient. Patient states she will be able to self-admin ister drops as ordered.- Reinforced regular use of lubricatin g eye drops for prevention of future infections , corneal abrasions, and other complicati ons- Should symptoms worsen or progress despite treatment, instructed patient to contact her ophthalmol ogist. Reviewed signs and symptoms that should prompt seeking emergency medical care. Patient demonstrat es understand ing of plan of care. Health Concerns Section Related Observation LastModified by Organization Detai ls LastModified Time None Recorded Concern Status LastModified by Organization Details LastModified Time None Recorded Advance Directives Directive Y: HCP/ -Roman, Sister Elías Payers Insurance Date Sequence Insurance Name Policy Number Policy Freire Covered Member ID Freire Member ID Guarantor Name 05/25/2022 1 [facility] ([facility]) [id number] Renay Dent Raghu [id number] Renay Dent Raghu 05/25/2022 1 [employer] (POS) [id number] Renay Dent Raghu [id number] Renay Dent Raghu 05/25/2022 1 [facility] (O) Renay Dent Raghu [id number] Renay Dent Raghu 05/25/2022 1 [facility] [place] [id number] Renay Dent Raghu [id number] Renay Dent Raghu 07/24/2025 1 [facility] [place] [place] Renay Dent Raghu [id number] Renay Dent Raghu Notes Date Note Type Note Provider Name and Address Organization Details Recorded Time 11/04/19 24 text/htm l ROS as noted in the HPI Renay is a 53yr old F who presents for possible conjuntivitis of the left eye x2 days. Report she woke up to her left eye crusted shut. Notes of pruritis and erythema of the left eye. Denies of any trauma to the face or eye, recent URI, or changes in vision. NICK SMITH MD [address], [id number], [facility] [place] 11/08/2023 09:22:04 11/28/19 24 text/htm l Hypertension F/UReported by PatientHPIFor associated symptoms, patient reportsno dizziness,no lightheadedness,no chest pain,no shortness of breath,no palpitations, andno edema. For lifestyle, patient reportsregular exerciseandlimiting/avoiding salt. For medications, patient reportstaking medications as directedandno side effects from medication. Anxiety/DepressionReported by PatientHPIFor quality, patient reportssymptoms worse during the day,mood worse, andincreased anxiety. For context, patient reportstrouble at work. For associated symptoms, patient reportshigh irritability,hostility,anxiety,i nsomnia, andsleep disturbancesbut reportsdenies homicidal ideations. For severity, patient reportsdenies suicidal ideations,able to maintain relationships, anddoes not interfere with activities of daily living. For duration, patient reportssymptoms lasting over 2 weeks.No therapist or history of medications. Cesar Keller MD [address], [phone], [facility] [place] 11/28/2023 09:39:53 09/11/20 24 text/htm l Generic HPI TemplateReported by PatientHere for a physical, feels well, still stressed with work responsibilities, has a grandson now. Seeing dentist and ophtho regularly. Cesar Keller MD [address], [phone], [facility] [place] 09/11/2024 10:36:14 03/05/20 25 text/htm l HyperlipidemiaReported by PatientHPIFor type of hyperlipidemia, patient reportshypertriglyceridemia. For duration, patient reportschronic. For control, patient reportsusually poorly controlledandnot at goal. For risk factors, patient reportshypertensionandobesity. For current therapy, patient reportslast cholesterol level: (195),last ldl level: (120),last triglyceride level: (223), andlast hdl level: (30). For compliance, patient reportscompliantandcompliant with diet. For complications, patient reportsno coronary artery disease,no peripheral artery disease, andno cardiovascular disease.Current CVD risk score 5%, but she is overdue for lipid reassessment. Hypertension F/UReported by PatientHPIFor associated symptoms, patient reportsno dizziness,no lightheadedness,no chest pain,no shortness of breath,no palpitations, andno edema. For lifestyle, patient reportsregular exerciseandlimiting/avoiding salt. For medications, patient reportstaking medications as directedandno side effects from medication. ThyroidReported by PatientHPIFor associated symptoms, patient reportsweight loss (3 lbs)but reportsno cold intolerance,no heat intolerance, andno weight gain. For severity, patient reportsmild. For onset/timing, patient reportsbetter. For context, patient reportsnormal thyroid levels. For exercise, patient reportsgets exercise. Did not go for labs from the Fall. Her father was recently diagnosed with vascular dementia and has been preoccupied with his tarnsitions of care. Cesar Keller MD [address] [address], [place], [phone], [facility] 03/05/2025 16:03:24 07/24/20 25 text/htm l Red EyeReported by PatientHPIFor quality, patient reportsitching. For associated symptoms, patient reportsforeign body sensation in eyes (intermittent)andmucopurulent discharge from the eyes (with some crusting. unsure of the color but it felt sticky.)but reportsnormal vision,no sensitivity to light,no eye pain, andno watery eyes (eyes always feel watery, but no watery discharge with acute change)(eye feels irritated and swollen, does not feel like a pressure or a pain.). For location, patient reportsleft. For severity, patient reportsno pain. For onset/timing, (started this morning). For context, (prior history of dry eye and sjogren's syndrome. prior history of bacterial conjunctivitis and corneal abrasion.). For modifying factors, (has not tried anything yet. has not been applying artificial tears).ROS as noted in the HPI Renay is a 55 year old F with PMH of MARSHA, HTN, hypertriglyceridemia, prediabetes, hypothyroidism, obesity, vit D deficiency, allergic conjunctivitis, environmental allergies, GERD, hiatal hernia, Sjogren syndrome, psoriatic arthritis, and steatotic liver disease. She is presenting today with pink eye. Previous history of bacterial and allergic conjunctivitis.Previously worked up for Sjogren's syndrome with rheumatology; results negative. Current use of eye drops? she should be using artificial tears but that she does not use them as much as she is supposed to. Currently seeing opthamology? had appointment within the last month with Dr. Jerica Lopez. No abnormal findings reported by patient. Feels different from previous episodes of dry eye. Madie Payton PA-C [address], [phone], [facility] 07/24/2025 11:44:02 OBGyn Episode No OBEpisode recorded.
[2025-08-29 11:44] LABS: TS Negative Control Passed; TS Panel A 0; TS Panel B 0; TS Positive Control Passed; TSpotTB Negative (Negative)
== END 2025-08-26 16:38 | disposition home or self-care (01) ==
LOC: HO.LAB 16:37
PROVIDERS: PCP Pediatrics; Visit Provider Dermatology
DX: Z51.81 Encounter for therapeutic drug level monitoring (principal); Z11.1 Encounter for screening for respiratory tuberculosis; L40.0 Psoriasis vulgaris; Z79.899 Other long term (current) drug therapy
CPT/HCPCS: 36415; 86481